=== PATIENT | male | born 1970 | race Caucasian/White ===

== ENCOUNTER → 2016-03-30 | Outpatient (CLI) | payer OTHER ==
[~2016-03-30] MED LIST: ACET30TAB PO; HYDR1TAB97 PO; OMEP20CA3 PO; TRAM50TA2 PO
[2016-03-30 13:49] LABS: BASO # 0.1 K/mm3 (0.0-0.2); BASO % 1.4 % (0.0-1.0); EOS # 0.4 K/mm3 (0.0-0.50); EOS % 4.1 % (0.0-3.0); LARGE UNSTAINED CELL # 0.2 K/mm3 (0.0-0.4); LARGE UNSTAINED CELL % 1.8 % (0.0-4.0); LYMPH # 3.1 K/mm3 (1.5-4.5); LYMPH % 33.8 % (24.0-44.0); MEAN CORPUSCULAR HEMOGLOBIN 31.7 pg (27.0-33.0); MEAN CORPUSCULAR HGB CONC 33.6 g/dl (32.0-36.5); MEAN CORPUSCULAR VOLUME 94.4 fl (80.0-96.0); MONO # 0.6 K/mm3 (0.0-0.8); MONO % 6.7 % (0.0-5.0); NEUTROPHILS # 4.5 K/mm3 (1.8-7.7); NEUTROPHILS % 52.2 % (36.0-66.0); PLATELET COUNT, AUTOMATED 256 k/mm3 (150-450); RED CELL DISTRIBUTION WIDTH 13.2 % (11.5-14.5); WHITE BLOOD COUNT 8.7 K/mm3 (4.0-10.0)
--- NOTE | 2016-03-30 15:57 | REP ---
Clinical: Adenopathy . Comparison: 11/12/2015 . Technique: PA and lateral. Findings: The mediastinum and cardiac silhouette are normal. The lung patricio are clear and without acute consolidation, effusion, or pneumothorax. The skeletal structures are intact and normal. Impression: 1. No acute cardiopulmonary process. Signed by Georges Larson MD 03/30/2016 03:48 P
[2016-03-31 13:56] LABS: CONTROL LINE INT CTR LINE PRESENT; HIV SCRN NEGATIVE (NEGATIVE); HIV SCRN1 NEGATIVE (NEGATIVE)
== END ==
LOC: M LAB 12:54
PROVIDERS: ATTEND Internal Medicine Pulmonary Disease
DX: R59.9 Enlarged lymph nodes, unspecified (principal)

== ENCOUNTER 2016-07-07 00:59 | Day surgery (SDC) | payer OTHER ==
[~2016-07-07] VITALS: Ht 175.3 cm; Wt 64.3 kg
[~2016-07-07 00:59] MED LIST changes: +HYDR-3713 PO; -HYDR1TAB97 PO
[2016-07-07] MEDS ORDERED: NS 1,000 ML IV ONE ×2 (02:30→08:00)
[2016-07-07 02:37] LABS: BASO % 0.4 % (0.0-1.0); EOS # 0.1 K/mm3 (0.0-0.50); LARGE UNSTAINED CELL % 0.3 % (0.0-4.0); LYMPH # 0.7 K/mm3 (1.5-4.5); MEAN CORPUSCULAR HEMOGLOBIN 32.6 pg (27.0-33.0); MEAN CORPUSCULAR HGB CONC 34.8 g/dl (32.0-36.5); MEAN CORPUSCULAR VOLUME 93.5 fl (80.0-96.0); MONO # 0.3 K/mm3 (0.0-0.8); MONO % 2.4 % (0.0-5.0); NEUTROPHILS # 10.1 K/mm3 (1.8-7.7); NEUTROPHILS % 89.9 % (36.0-66.0); PLATELET COUNT, AUTOMATED 276 k/mm3 (150-450); RED CELL DISTRIBUTION WIDTH 12.8 % (11.5-14.5); WHITE BLOOD COUNT 11.2 K/mm3 (4.0-10.0)
[2016-07-07 03:00] LABS: ALBUMIN 3.9 GM/DL (3.2-5.2); ALBUMIN/GLOBULIN RATIO 1.34 (1.00-1.93); ALKALINE PHOSPHATASE 73 U/L (45-117); ALT/SGPT 16 U/L (12-78); ANION GAP 10 MEQ/L (8-16); AST/SGOT 13 U/L (15-37); BILIRUBIN,DIRECT 0.2 MG/DL (0.0-0.2); BILIRUBIN,TOTAL 0.5 MG/DL (0.2-1.0); BLOOD UREA NITROGEN 13 MG/DL (7-18); CALCIUM LEVEL 8.5 MG/DL (8.5-10.1); CARBON DIOXIDE LEVEL 26 MEQ/L (21-32); CHLORIDE LEVEL 106 MEQ/L (98-107); CREATININE FOR GFR 0.97 MG/DL (0.70-1.30); GLOMERULAR FILTRATION RATE > 60.0 (>60); GLUCOSE, FASTING 170 MG/DL (70-105); SODIUM LEVEL 142 MEQ/L (136-145); TOTAL PROTEIN 6.8 GM/DL (6.4-8.2)
[2016-07-07] MEDS ORDERED: ONDANSETRON 4MG/2ML VIAL (J2405) IV ONE ×2 (03:30→07:00)
[2016-07-07] MEDS ORDERED: GASTROGRAFIN SOLUTION 30ML (Q9963) As Ordered ONE (03:32)
[2016-07-07] MEDS: MORPHINE 4 MG/ML 1ML SYRINGE IV PRN ×2 (03:36→04:39)
[2016-07-07] MEDS ORDERED: ISOVUE-370 76% 100ML VIAL (Q9967) As Ordered ONE (05:02)
--- NOTE | 2016-07-07 05:10 | REPUSA ---
CLINICAL HISTORY: RUQ pain. TECHNIQUE: Realtime sonographic images were obtained in multiple projections. COMMENTS: Comparison to the prior exam on 08/28/2015. The visualized liver is of uniform echo texture without evidence of mass or defect. There is no intra or extrahepatic biliary ductal dilatation. The common bile duct measures 4.7 mm. The gallbladder is diffusely thickened with multiple gallstones. Diffuse gallbladder wall thickening measuring 6.8 mm. 2 hepatic hemangiomas are noted measuring 1.8 and 1 cm respectively. The right kidney measures 11.2x5.4x4.4 cm. The visualized portions of the pancreas are unremarkable. IMPRESSION: Cholelithiasis. Interval appearance of diffuse thickening of the wall of the gallbladder suspicious for an inflammato ry pathology. Nondilated biliary tree. Two hepatic hemangiomas. Thank you for your kind referral of this patient.
[2016-07-07] MEDS ORDERED: PIPERACILLIN/TAZOBACTAM SOD 3.375 GM in D5W MINI-BAG PLUS 50 ML IV ONE (06:30)
[2016-07-07] MEDS ORDERED: MORPHINE 4 MG/ML 1ML SYRINGE IV PRN (07:00)
[2016-07-07] MEDS ORDERED: METOCLOPRAMIDE INJ 10MG/2ML VIAL (J2765) IV ONE (07:30)
--- NOTE | 2016-07-07 08:37 | REPUSA ---
CLINICAL HISTORY: Abdominal pain. TECHNIQUE: Multiple axial, sagittal and coronal CT images were obtained through the abdomen and pelvi s after administration of oral and intravenous contrast material. COMMENTS: Comparison to the prior exam of 09/24/2015. The liver is of uniform attenuation without mass or defect. There is no intra or extrahepatic biliary ductal dilatation. The spleen is normal. The gallbladder is within normal limits. The pancreas is of normal contour and attenuation characteristics. There is no evidence of adrenal mass. Both kidneys demonstrate prompt and equal nephrograms. The kidneys are normal in size, shape and conf iguration. There is no evidence of renal or ureteral mass. No renal or ureteral calculi are identifie d. There is no hydroureter or hydronephrosis. No evidence for appendicitis. There is mild apparent thickening of the terminal ileum, cecum and asc ending colon. No evidence for small or large bowel obstruction. There is no evidence of abdominal asc ites or lymphadenopathy. There is no evidence of intrinsic or extrinsic bladder mass. There is no pelvic ascites or lymphadeno magdiel. Images of the lung bases show no evidence of pleural or parenchymal mass. There are no pleural effusi ons. The bony structures are free of lytic or blastic lesions. IMPRESSION: Mild apparent thickening of the terminal ileum, cecum and ascending colon. Underdistention, spasm or infectious/inflammatory pathology. Findings were not present on prior exam. Thank you for your kind referral of this patient.
[2016-07-07] MEDS ORDERED: MORPHINE 2 MG/ML 1ML SYRINGE IV PRN (08:45)
[2016-07-07] MEDS ORDERED: ACETAMINOPHEN TAB 650MG DOSE (2X325MG) PO PRN (08:45)
[2016-07-07] MEDS ORDERED: ONDANSETRON 4MG/2ML VIAL (J2405) IV PRN ×2 (08:45→18:15)
[2016-07-07] MEDS: LR 1,000 ML IV SCH ×2 (10:20→20:44)
[2016-07-07] MEDS ORDERED: BUPIVACAINE HCL 0.25% 30 ML VIAL As Ordered ONE (13:41)
[2016-07-07] MEDS ORDERED: CONRAY-60 60% 50ML VIAL (Q9961) As Ordered ONE (13:41)
[2016-07-07] MEDS ORDERED: PIPERACILLIN/TAZOBACTAM SOD 3.375 GM in D5W MINI-BAG PLUS 50 ML IV SCH ×2 (14:00→22:00)
[2016-07-07] MEDS ORDERED: ZOSYN 3.375 GM VIAL (J2543) As Ordered ONE (14:32)
[2016-07-07] MEDS ORDERED: dexameTHASONE 4 MG/ML 1ML VIAL (J1100) As Ordered ONE (16:11)
[2016-07-07] MEDS ORDERED: LIDOCAINE 2% INJ 100 MG/5 ML SDV (FOR ANES.) As Ordered ONE (16:11)
[2016-07-07] MEDS ORDERED: PROPOFOL 200 MG/20 ML VIAL As Ordered ONE (16:11)
[2016-07-07] MEDS ORDERED: fentaNYL 100 MCG/2 ML INJECTION (J3010) As Ordered ONE (16:11)
[2016-07-07] MEDS ORDERED: MIDAZOLAM INJ 2 MG/2 ML VIAL (J2250) As Ordered ONE (16:11)
[2016-07-07] MEDS ORDERED: ONDANSETRON 4MG/2ML VIAL (J2405) As Ordered ONE (16:11)
[2016-07-07] MEDS ORDERED: ROCURONIUM BROMIDE 50 MG/5 ML VIAL As Ordered ONE (16:11)
[2016-07-07] MEDS ORDERED: HYDROmorphone HCL 2 MG/ML 1ML VIAL (J1170) As Ordered ONE (16:14)
[2016-07-07] MEDS ORDERED: PHENYLephrine HCL 500 MCG/5 ML (100MCG/ML) SYRINGE (J2370) As Ordered ONE (16:24)
--- NOTE | 2016-07-07 16:44 | ECGEPIP ---
Stationary ECG Study [facility] - ED Test Date: 2016-07-07 Pat Name: CHRIS GOYAL Department: Room: - Gender: M Appeals [employer] Associate Justice: : 1970 Requested By: JEAN-PIERRE Funk Order Number: [id number] Reading MD: Jerri Jaime Measurements Intervals [place] Rate: 41 P: 67 TX: 148 QRS: 68 QRSD: 89 T: 65 QT: 457 QTc: 380 Interpretive Statements SINUS BRADYCARDIA NSTTW ABNORMALITY SIMILAR 04/05/15 Electronically Signed On 07-07-2016 16:44:08 EDT by Jerri Jaime
[2016-07-07] MEDS ORDERED: DESFLURANE 240 ML INHALANT As Ordered ONE (16:55)
[2016-07-07] MEDS ORDERED: GLYCOPYRROLATE INJ 0.2 MG/ML 2 ML VIAL As Ordered ONE ×2 (17:10→17:32)
[2016-07-07] MEDS ORDERED: NEOSTIGMINE 1MG/ML 5 ML SYRINGE (J2710) As Ordered ONE (17:10)
[2016-07-07] MEDS ORDERED: SEVOFLURANE INHAL SOLN 250 ML BTL As Ordered ONE (17:11)
[2016-07-07] MEDS ORDERED: KETOROLAC 60 MG/2 ML VIAL (J1885) As Ordered ONE (17:26)
[2016-07-07] MEDS ORDERED: LR 1,000 ML IV SCH (18:15)
[2016-07-07] MEDS ORDERED: fentaNYL 100 MCG/2 ML INJECTION (J3010) IV PRN (18:15)
[2016-07-07] MEDS ORDERED: PERCOCET 5MG/325MG TAB PO PRN (18:15)
[2016-07-07 19:23] VITALS: BP 117/71
[2016-07-07 19:53] VITALS: BP 128/61
[2016-07-07 20:27] VITALS: BP 94/60
[2016-07-07] MEDS ORDERED: METOCLOPRAMIDE INJ 10MG/2ML VIAL (J2765) IV PRN (21:00)
[2016-07-07] MEDS ORDERED: PANTOPRAZOLE 40MG TAB (PROTONIX) PO SCH (21:00)
[2016-07-07 21:27] VITALS: BP 115/59
[2016-07-07 22:27] VITALS: BP 94/62
[2016-07-07] MEDS: KETOROLAC 30 MG/ML VIAL (J1885) IV PRN (23:04)
[2016-07-07 23:27] VITALS: BP 101/57
[2016-07-08 00:27] VITALS: BP 97/60
[2016-07-08 06:00] VITALS: BP 114/65
[2016-07-08] MEDS: KETOROLAC 30 MG/ML VIAL (J1885) IV PRN ×2 (07:41→14:30)
[2016-07-08 10:00] VITALS: BP 112/64
[2016-07-08 14:00] VITALS: BP 123/64
[2016-07-08] MEDS ORDERED: IBUP600T26 PO (16:43)
--- NOTE | 2016-07-09 05:57 | RO ---
DATE OF PROCEDURE: 07/07/2016 PREOPERATIVE DIAGNOSIS: Cholelithiasis with acute cholecystitis. POSTOPERATIVE DIAGNOSIS: Cholelithiasis with acute cholecystitis. PROCEDURE PERFORMED: Laparoscopic cholecystectomy. SURGEON: Dr. Tomasz Cardoza. GIS MAPPING TECHNICIAN: ANESTHESIA: General. INDICATIONS FOR PROCEDURE: The patient is a 46-year-old man who presented to the emergency department with severe upper abdominal pain. His white blood cell count was elevated to 11,000 with a left shift. A gallbladder ultrasound revealed cholelithiasis with some diffuse thickening of the gallbladder wall suspicious for acute cholecystitis. The bile ducts were felt to be of normal size. I was consulted and as the pain had persisted for about a day, he was felt to have acute cholecystitis clinically. He is now for a laparoscopic cholecystectomy. OPERATIVE PROCEDURE: The patient was placed under general endotracheal anesthesia. The patient's abdomen was prepped and draped in a sterile fashion. 0.25% Marcaine was infiltrated at each of the trocar sites prior to insertion. A short supraumbilical midline incision was made and deepened through the fascia and peritoneum. A Hari cannula was inserted and the abdomen was insufflated with carbon dioxide gas. The laparoscope was placed. Initial examination showed a normal-appearing liver. The gallbladder was distended. There appeared to be some edema in the wall of the gallbladder, particularly toward the gallbladder neck, though the gallbladder was not particularly hyperemic. Visualized portions of the small and large bowel and stomach appeared normal. Two 5 mm trocars were placed in the right upper quadrant and a third 5 mm trocar was placed in the left upper quadrant. The patient was tilted to a reverse Trendelenburg position. The gallbladder was grasped and elevated. Dissection proceeded at the gallbladder neck. The peritoneum was opened at the gallbladder neck and dissection proceeded to expose the cystic duct and the cholecystic artery. The cystic duct was identified and encircled first and was doubly clipped with hemoclips and divided. The cholecystic artery was then dissected free and doubly clipped with hemoclips and divided. The gallbladder was then dissected free from the gallbladder bed using cautery dissection. The gallbladder was not perforated. The gallbladder was placed in an Endopouch. The right upper quadrant was irrigated and inspected. There was no evidence of bleeding or bile leak. The patient was returned to a flat position. The abdomen was deflated and the trocars were all removed. The gallbladder was recovered through the Mendez site. The gallbladder wall appeared to be somewhat thickened more diffusely. This was sent for permanent pathology. The fascia at the Mendez site was closed with interrupted simple sutures of #2-0 Vicryl. The skin incisions were all closed with buried #5-0 Vicryl and Steri-Strips. Light dressings were applied. The patient tolerated the procedure well without apparent complication. He was awakened in the operating room, extubated and moved to the recovery room in stable condition. PAT
== END 2016-07-08 17:20 | disposition home or self-care (01) ==
LOC: EDBD 00:59 → M ED 04:00 → M MSPAV 08:45 → M SDC 08:45 → M MSPAV 19:20 → M SDC 07-08 17:20
PROVIDERS: ATTEND Surgery
DX: K80.18 Calculus of gallbladder with other cholecystitis without obstruction (principal); F17.210 Nicotine dependence, cigarettes, uncomplicated

== ENCOUNTER 2016-07-21 14:32 | Emergency (ER) | payer OTHER ==
[~2016-07-21] VITALS: Ht 175.3 cm; Wt 68.0 kg
[~2016-07-21 14:32] MED LIST changes: +IBUP600T26 PO
[2016-07-21] MEDS ORDERED: NS 1,000 ML IV ONE (15:00)
[2016-07-21] MEDS ORDERED: MORPHINE 4 MG/ML 1ML SYRINGE IV ONE (15:00)
[2016-07-21] MEDS ORDERED: PANTOPRAZOLE 40MG INJ (PROTONIX) (C9113) IV ONE (15:00)
[2016-07-21] MEDS ORDERED: ONDANSETRON 4MG/2ML VIAL (J2405) IV ONE (15:00)
[2016-07-21 15:18] LABS: BASO # 0.1 K/mm3 (0.0-0.2); BASO % 0.5 % (0.0-1.0); EOS # 0.2 K/mm3 (0.0-0.50); EOS % 1.9 % (0.0-3.0); LARGE UNSTAINED CELL # 0.1 K/mm3 (0.0-0.4); LARGE UNSTAINED CELL % 0.8 % (0.0-4.0); LYMPH # 1.5 K/mm3 (1.5-4.5); LYMPH % 11.2 % (24.0-44.0); MEAN CORPUSCULAR HEMOGLOBIN 32.6 pg (27.0-33.0); MEAN CORPUSCULAR HGB CONC 34.1 g/dl (32.0-36.5); MEAN CORPUSCULAR VOLUME 95.6 fl (80.0-96.0); MONO # 0.4 K/mm3 (0.0-0.8); MONO % 3.2 % (0.0-5.0); NEUTROPHILS # 10.5 K/mm3 (1.8-7.7); NEUTROPHILS % 82.3 % (36.0-66.0); PLATELET COUNT, AUTOMATED 342 k/mm3 (150-450); RED CELL DISTRIBUTION WIDTH 12.7 % (11.5-14.5); WHITE BLOOD COUNT 12.8 K/mm3 (4.0-10.0)
[2016-07-21 15:33] LABS: ALBUMIN 3.9 GM/DL (3.2-5.2); ALBUMIN/GLOBULIN RATIO 1.39 (1.00-1.93); ALKALINE PHOSPHATASE 78 U/L (45-117); ALT/SGPT 18 U/L (12-78); AMYLASE 92 U/L (25-115); ANION GAP 8 MEQ/L (8-16); AST/SGOT 11 U/L (15-37); BILIRUBIN,DIRECT 0.1 MG/DL (0.0-0.2); BILIRUBIN,TOTAL 0.4 MG/DL (0.2-1.0); BLOOD UREA NITROGEN 14 MG/DL (7-18); CALCIUM LEVEL 8.4 MG/DL (8.5-10.1); CARBON DIOXIDE LEVEL 23 MEQ/L (21-32); CHLORIDE LEVEL 107 MEQ/L (98-107); CREATININE FOR GFR 0.83 MG/DL (0.70-1.30); GLOMERULAR FILTRATION RATE > 60.0 (>60); GLUCOSE, FASTING 118 MG/DL (70-105); POTASSIUM SERUM 4.2 MEQ/L (3.5-5.1); SODIUM LEVEL 138 MEQ/L (136-145); TOTAL PROTEIN 6.7 GM/DL (6.4-8.2)
[2016-07-21] MEDS ORDERED: ISOVUE-370 76% 100ML VIAL (Q9967) As Ordered ONE (15:36)
--- NOTE | 2016-07-21 16:57 | REP ---
CT ABDOMEN AND PELVIS WITH CONTRAST: TECHNIQUE: Axial contrast enhanced images from the lung bases to the pubic symphysis using 100 mL Isovue 370 intravenous contrast material with multiplanar reformations. Visualized lung bases demonstrate no evidence of infiltrate. The liver, spleen, adrenals, pancreas and kidneys are essentially normal in appearance. The patient has had a cholecystectomy. A tiny amount of nonencapsulated fluid is seen in the gallbladder fossa. The common bile duct appears essentially unremarkable without significant dilatation or definite intraluminal stone. There is no abdominal aortic aneurysm. There is no adenopathy. There is no free air. No bowel wall thickening is seen. IMPRESSION: Tiny amount of fluid in the gallbladder fossa, status post cholecystectomy. Otherwise unremarkable exam. Signed by Cooper Stephens MD 07/21/2016 05:27 P
[2016-07-21] MEDS ORDERED: PRIL20CA9 PO (17:30)
[2016-07-21] MEDS ORDERED: ZOFR4TAB3 PO (17:30)
[2016-07-21 17:50] VITALS: BP 112/68
== END 2016-07-21 17:54 | disposition home or self-care (01) ==
LOC: EDBD 14:32 → M ED 15:28
DX: R11.10 Vomiting, unspecified (principal); G43.909 Migraine, unspecified, not intractable, without status migrainosus; F17.200 Nicotine dependence, unspecified, uncomplicated; Z90.49 Acquired absence of other specified parts of digestive tract

== ENCOUNTER 2016-12-10 13:35 | Emergency (ER) | payer OTHER ==
[~2016-12-10] VITALS: Ht 175.3 cm; Wt 63.6 kg
[~2016-12-10 13:35] MED LIST changes: +IBUP-1022 PO; -IBUP600T26 PO; +PRIL20CA9 PO; +ZOFR4TAB3 PO
[2016-12-10] MEDS: NS 1,000 ML IV SCH ×2 (13:39→16:17)
[2016-12-10] MEDS ORDERED: NS 1,000 ML IV ONE (14:00)
[2016-12-10] MEDS ORDERED: METOCLOPRAMIDE INJ 10MG/2ML VIAL (J2765) IV ONE (14:00)
[2016-12-10 14:24] LABS: BASO # 0.1 K/mm3 (0.0-0.2); BASO % 0.9 % (0.0-1.0); EOS # 0.1 K/mm3 (0.0-0.50); EOS % 1.4 % (0.0-3.0); LARGE UNSTAINED CELL # 0.1 K/mm3 (0.0-0.4); LARGE UNSTAINED CELL % 0.9 % (0.0-4.0); LYMPH # 1.5 K/mm3 (1.5-4.5); LYMPH % 14.9 % (24.0-44.0); MEAN CORPUSCULAR HEMOGLOBIN 32.2 pg (27.0-33.0); MEAN CORPUSCULAR HGB CONC 33.2 g/dl (32.0-36.5); MONO # 0.5 K/mm3 (0.0-0.8); MONO % 4.9 % (0.0-5.0); NEUTROPHILS # 7.4 K/mm3 (1.8-7.7); PLATELET COUNT, AUTOMATED 317 k/mm3 (150-450); RED CELL DISTRIBUTION WIDTH 12.8 % (11.5-14.5); WHITE BLOOD COUNT 9.6 K/mm3 (4.0-10.0)
[2016-12-10 14:33] LABS: ALBUMIN 3.9 GM/DL (3.2-5.2); ALBUMIN/GLOBULIN RATIO 1.22 (1.00-1.93); ALKALINE PHOSPHATASE 91 U/L (45-117); ALT/SGPT 17 U/L (12-78); ANION GAP 7 MEQ/L (8-16); AST/SGOT 15 U/L (15-37); BILIRUBIN,DIRECT 0.2 MG/DL (0.0-0.2); BILIRUBIN,TOTAL 0.6 MG/DL (0.2-1.0); BLOOD UREA NITROGEN 9 MG/DL (7-18); CARBON DIOXIDE LEVEL 29 MEQ/L (21-32); CHLORIDE LEVEL 104 MEQ/L (98-107); CREATININE FOR GFR 0.97 MG/DL (0.70-1.30); GLOMERULAR FILTRATION RATE > 60.0 (>60); GLUCOSE, FASTING 108 MG/DL (70-105); POTASSIUM SERUM 4.8 MEQ/L (3.5-5.1); SODIUM LEVEL 140 MEQ/L (136-145); TOTAL PROTEIN 7.1 GM/DL (6.4-8.2)
[2016-12-10] MEDS ORDERED: MORPHINE 4 MG/ML 1ML SYRINGE IV ONE (15:00)
[2016-12-10] MEDS ORDERED: GASTROGRAFIN SOLUTION 30ML (Q9963) As Ordered ONE (15:06)
[2016-12-10] MEDS ORDERED: GASTROGRAFIN SOLUTION 30ML PO ONE (15:15)
[2016-12-10] MEDS ORDERED: PROMETHAZINE INJ 25 MG/ML VIAL (J2550) IV ONE (15:15)
[2016-12-10] MEDS ORDERED: GASTROGRAFIN SOLUTION 30ML (Q9963) PO ONE (15:45)
[2016-12-10] MEDS ORDERED: ISOVUE-370 76% 100ML VIAL (Q9967) As Ordered ONE (16:43)
--- NOTE | 2016-12-10 17:12 | REP ---
Clinical: Abdominal pain. Technique: Axial contrast enhanced images from the lung bases to the pubic symphysis using oral and 100 ml Isovue 370 intravenous contrast material with coronal and sagittal re-formations. Comparison: 07/21/2016. Findings: Lung bases are clear. Visualized heart and pericardium normal. Liver, spleen, pancreas, bilateral adrenal glands and kidneys are normal. The patient is status post cholecystectomy. Evaluation of the enteric system demonstrates mild mural thickening to the sigmoid colon along with small amount of free fluid in the pelvis suggesting infectious/inflammatory colitis and correlation is recommended. The remainder of the small and large bowel including the appendix appear normal and there is no evidence for obstruction. Pelvis demonstrates normal bladder and age appropriate prostate/seminal vesicles. No free air. No significant adenopathy or obvious mass lesion. Abdominal aorta and vasculature appears normal. Musculoskeletal structures demonstrate chronic L5 spondylolysis with grade 1 spondylolisthesis of approximately 6 mm. Impression: 1. Findings suggest infectious/inflammatory sigmoid colitis with small amount of free fluid. No associated free air, drainable collection, or obstruction. 2. Chronic L5 spondylolysis with grade 1 spondylolisthesis. Signed by Georges Larson MD 12/10/2016 05:03 P
[2016-12-10 17:37] LABS: METHADONE URINE NEGATIVE (NEGATIVE)
[2016-12-10] MEDS ORDERED: PHEN1SUP6 PR (18:21)
[2016-12-10 19:11] VITALS: BP 113/60
--- NOTE | 2016-12-11 07:49 | ECGEPIP ---
Stationary ECG Study [facility] - ED Test Date: 2016-12-10 Pat Name: CHRIS GOYAL JR Department: Room: - Gender: M Clinical Research Coordinator: : 1970 Requested By: Jerri Jaime Order Number: [id number] Reading MD: Jerri Jaime Measurements Intervals [place] Rate: 42 P: 58 OR: 230 QRS: 70 QRSD: 87 T: 70 QT: 406 QTc: 341 Interpretive Statements SINUS BRADYCARDIA WITH FIRST DEGREE AV BLOCK WITH OCCASIONAL SUPRAVENTRICULAR PREMATURE COMPLEXES LOW QRS VOLTAGE IN PRECORDIAL LEADS NSTTW ABNORMALITY DELAYED R PROGRESSION Electronically Signed On 12-11-2016 7:49:05 EDT by Jerri Jaime
== END 2016-12-10 19:13 | disposition home or self-care (01) ==
LOC: M ED 13:35
DX: K52.9 Noninfective gastroenteritis and colitis, unspecified (principal); R11.10 Vomiting, unspecified; R94.31 Abnormal electrocardiogram [ECG] [EKG]; F41.9 Anxiety disorder, unspecified; F32.9 Major depressive disorder, single episode, unspecified; G43.909 Migraine, unspecified, not intractable, without status migrainosus; Z87.19 Personal history of other diseases of the digestive system; F17.200 Nicotine dependence, unspecified, uncomplicated; M51.86 Other intervertebral disc disorders, lumbar region; Z79.899 Other long term (current) drug therapy
CPT/HCPCS: 74177; 80048; 80076; 80307; 82550; 82553; 83690; 85025; 93000; 93041; 96361; 96374; 96375; 99284; J2765; Q9963; Q9967

== ENCOUNTER 2016-12-16 12:50 | Emergency (ER) | payer OTHER ==
[~2016-12-16] VITALS: Ht 175.3 cm; Wt 63.6 kg
[~2016-12-16 12:50] MED LIST changes: +PHEN1SUP6 PR
[2016-12-16] MEDS ORDERED: LEVO500T3 (13:02)
[2016-12-16] MEDS ORDERED: ONDANSETRON 4MG/2ML VIAL (J2405) As Ordered ONE (13:49)
[2016-12-16] MEDS ORDERED: NS 500 ML IV ONE (14:00)
[2016-12-16] MEDS ORDERED: ONDANSETRON 4MG/2ML VIAL (J2405) IV ONE (14:00)
[2016-12-16 14:21] LABS: BASO # 0.1 K/mm3 (0.0-0.2); BASO % 0.8 % (0.0-1.0); EOS # 0.1 K/mm3 (0.0-0.50); EOS % 0.8 % (0.0-3.0); LARGE UNSTAINED CELL # 0.1 K/mm3 (0.0-0.4); LARGE UNSTAINED CELL % 0.8 % (0.0-4.0); LYMPH # 1.6 K/mm3 (1.5-4.5); LYMPH % 12.8 % (24.0-44.0); MEAN CORPUSCULAR HEMOGLOBIN 33.9 pg (27.0-33.0); MEAN CORPUSCULAR VOLUME 94.3 fl (80.0-96.0); MONO # 0.6 K/mm3 (0.0-0.8); MONO % 4.6 % (0.0-5.0); NEUTROPHILS # 10.2 K/mm3 (1.8-7.7); NEUTROPHILS % 80.2 % (36.0-66.0); PLATELET COUNT, AUTOMATED 295 k/mm3 (150-450); RED CELL DISTRIBUTION WIDTH 12.4 % (11.5-14.5); WHITE BLOOD COUNT 12.7 K/mm3 (4.0-10.0)
[2016-12-16 14:32] LABS: ALBUMIN 3.7 GM/DL (3.2-5.2); ALBUMIN/GLOBULIN RATIO 1.09 (1.00-1.93); ALKALINE PHOSPHATASE 85 U/L (45-117); ALT/SGPT 25 U/L (12-78); ANION GAP 6 MEQ/L (8-16); AST/SGOT 18 U/L (15-37); BILIRUBIN,DIRECT < 0.1 MG/DL (0.0-0.2); BILIRUBIN,TOTAL 0.3 MG/DL (0.2-1.0); BLOOD UREA NITROGEN 9 MG/DL (7-18); CALCIUM LEVEL 8.8 MG/DL (8.5-10.1); CARBON DIOXIDE LEVEL 29 MEQ/L (21-32); CHLORIDE LEVEL 105 MEQ/L (98-107); CREATININE FOR GFR 0.98 MG/DL (0.70-1.30); GLOMERULAR FILTRATION RATE > 60.0 (>60); GLUCOSE, FASTING 108 MG/DL (70-105); POTASSIUM SERUM 3.8 MEQ/L (3.5-5.1); SODIUM LEVEL 140 MEQ/L (136-145); TOTAL PROTEIN 7.1 GM/DL (6.4-8.2)
[2016-12-16] MEDS ORDERED: diphenhydrAMINE INJ 50MG/ML VIAL (J1200) IV STA (15:37)
[2016-12-16] MEDS ORDERED: HALOPERIDOL 5 MG TAB PO ONE (15:45)
[2016-12-16 17:11] VITALS: BP 138/68
== END 2016-12-16 17:13 | disposition home or self-care (01) ==
LOC: EDBD 12:50 → M ED 12:50
DX: R10.9 Unspecified abdominal pain (principal); G43.909 Migraine, unspecified, not intractable, without status migrainosus; Z87.19 Personal history of other diseases of the digestive system; F17.200 Nicotine dependence, unspecified, uncomplicated; F12.10 Cannabis abuse, uncomplicated; Z79.899 Other long term (current) drug therapy
CPT/HCPCS: 80048; 80076; 83690; 85025; 96361; 96374; 99284; J2405

== ENCOUNTER 2017-08-25 13:45 | Emergency (ER) | payer OTHER ==
[~2017-08-25 13:45] MED LIST changes: -ACET30TAB PO; -HYDR-3713 PO; -IBUP-1022 PO; +IPRATROPIUM 0.5MG/ALBUTEROL 2.5MG INH SOL UD 3ML (DUONEB)(J7620) As Ordered; -OMEP20CA3 PO; -PHEN1SUP6 PR; -PRIL20CA9 PO; -TRAM50TA2 PO; -ZOFR4TAB3 PO; +predniSONE 20 MG TAB As Ordered
[2017-08-25] MEDS ORDERED: LORATADINE 10 MG TAB As Ordered (17:39)
== END 2017-08-25 18:50 | disposition home or self-care (01) ==
LOC: M ED 18:50
DX: J45.901 Unspecified asthma with (acute) exacerbation (principal); J20.8 Acute bronchitis due to other specified organisms; R07.89 Other chest pain; R05 Cough; R06.02 Shortness of breath; Z72.0 Tobacco use
CPT/HCPCS: 94640

== ENCOUNTER 2017-09-04 11:24 | Emergency (ER) | payer OTHER ==
[2017-09-04] MEDS: NS 1,000 ML IV ×2 (11:30→14:30)
[2017-09-04] MEDS: ONDANSETRON 4MG/2ML VIAL (J2405) IV (11:45)
[2017-09-04 11:46] LABS: BASO # 0.1 10^3/uL (0.0-0.2); BASO % 0.5 % (0.0-1.0); EOS # 0.2 10^3/uL (0.0-0.50); EOS % 1.3 % (0.0-3.0); HEMATOCRIT 44.3 % (42.0-52.0); IMMATURE GRANULOCYTE % 1.2 % (0-3.0); LYMPH % 10.7 % (24.0-44.0); MEAN CORPUSCULAR HEMOGLOBIN 31.8 pg (27.0-33.0); MEAN CORPUSCULAR HGB CONC 33.9 g/dl (32.0-36.5); MEAN CORPUSCULAR VOLUME 94.1 fl (80.0-96.0); MONO # 1.1 10^3/uL (0.0-0.8); NEUTROPHILS # 15.3 10^3/uL (1.8-7.7); NEUTROPHILS % 80.3 % (36.0-66.0); PLATELET COUNT, AUTOMATED 448 10^3/uL (150-450); RED BLOOD COUNT 4.71 10^6/uL (4.30-6.10); RED CELL DISTRIBUTION WIDTH 13.3 % (11.5-14.5)
[2017-09-04] MEDS: GI COCKTAIL 50ML BTL(HYOSCYAMINE/MAALOX/LIDOCAINE VISCOUS)(1:3:1) PO (12:02)
[2017-09-04 12:15] LABS: ALBUMIN 3.5 GM/DL (3.2-5.2); ALBUMIN/GLOBULIN RATIO 0.95 (1.00-1.93); ALKALINE PHOSPHATASE 84 U/L (45-117); ALT/SGPT 49 U/L (12-78); AMYLASE 96 U/L (25-115); ANION GAP 6 MEQ/L (8-16); AST/SGOT 17 U/L (7-37); BILIRUBIN,DIRECT < 0.1 MG/DL (0.0-0.2); BILIRUBIN,TOTAL 0.3 MG/DL (0.2-1.0); BLOOD UREA NITROGEN 13 MG/DL (7-18); CALCIUM LEVEL 8.5 MG/DL (8.5-10.1); CARBON DIOXIDE LEVEL 32 MEQ/L (21-32); CHLORIDE LEVEL 103 MEQ/L (98-107); CK-MB VALUE MASS < 1.0 NG/ML (<3.6); CPK CREATINE PHOSPHOKINASE 63 U/L (39-308); GLOMERULAR FILTRATION RATE > 60.0 (>60); GLUCOSE, FASTING 131 MG/DL (70-100); LIPASE 318 U/L (73-393); MB/CK RELATIVE INDEX 1.58 (< OR =4); SODIUM LEVEL 141 MEQ/L (136-145); TOTAL PROTEIN 7.2 GM/DL (6.4-8.2); TROPONIN I < 0.02 NG/ML (< 0.10)
[2017-09-04] MEDS: GASTROGRAFIN SOLUTION 30ML PO ×2 (12:16→12:39)
[2017-09-04] MEDS: METOCLOPRAMIDE INJ 10MG/2ML VIAL (J2765) IV (13:00)
[2017-09-04 16:20] LABS: CK-MB VALUE MASS < 1.0 NG/ML (<3.6); CPK CREATINE PHOSPHOKINASE 71 U/L (39-308); TROPONIN I < 0.02 NG/ML (< 0.10)
== END 2017-09-04 16:46 | disposition home or self-care (01) ==
LOC: M ED 11:24
DX: R10.13 Epigastric pain (principal); R11.2 Nausea with vomiting, unspecified; R00.1 Bradycardia, unspecified; F41.9 Anxiety disorder, unspecified; F20.9 Schizophrenia, unspecified; G43.909 Migraine, unspecified, not intractable, without status migrainosus; F17.200 Nicotine dependence, unspecified, uncomplicated; Z86.19 Personal history of other infectious and parasitic diseases
CPT/HCPCS: Q9963

== ENCOUNTER 2017-09-26 09:21 | Emergency (ER) | payer OTHER ==
[2017-09-26] MEDS: diphenhydrAMINE INJ 50MG/ML VIAL (J1200) IM (03:35)
[2017-09-26] MEDS: HALOPERIDOL 5 MG/ML VIAL (J1630) IM (03:35)
[2017-09-26 04:35] LABS: HEMATOCRIT 41.3 % (42.0-52.0); HEMOGLOBIN 14.3 g/dl (13.5-17.5); MEAN CORPUSCULAR HEMOGLOBIN 31.8 pg (27.0-33.0); MEAN CORPUSCULAR HGB CONC 34.6 g/dl (32.0-36.5); MEAN CORPUSCULAR VOLUME 91.8 fl (80.0-96.0); PLATELET COUNT, AUTOMATED 262 10^3/uL (150-450); RED CELL DISTRIBUTION WIDTH 12.6 % (11.5-14.5)
[2017-09-26 05:01] LABS: CPK CREATINE PHOSPHOKINASE 284 U/L (39-308)
[2017-09-26 05:09] LABS: ALBUMIN 3.8 GM/DL (3.2-5.2); ALBUMIN/GLOBULIN RATIO 1.27 (1.00-1.93); ALKALINE PHOSPHATASE 90 U/L (45-117); ALT/SGPT 29 U/L (12-78); ANION GAP 10 MEQ/L (8-16); AST/SGOT 18 U/L (7-37); BILIRUBIN,DIRECT 0.1 MG/DL (0.0-0.2); BILIRUBIN,TOTAL 0.5 MG/DL (0.2-1.0); BLOOD UREA NITROGEN 17 MG/DL (7-18); CALCIUM LEVEL 8.8 MG/DL (8.5-10.1); CARBON DIOXIDE LEVEL 26 MEQ/L (21-32); CHLORIDE LEVEL 106 MEQ/L (98-107); CREATININE FOR GFR 1.35 MG/DL (0.70-1.30); ETHYL ALCOHOL (ETHANOL) < 0.003 % (0.000-0.010); GLOMERULAR FILTRATION RATE > 60.0 (>60); GLUCOSE, FASTING 212 MG/DL (70-100); POTASSIUM SERUM 3.3 MEQ/L (3.5-5.1); SALICYLATE LEVEL 1.8 MG/DL (5.0-30.0); SODIUM LEVEL 142 MEQ/L (136-145); THYROID STIMULATING HORMONE 0.577 uIU/ML (0.358-3.740); TOTAL PROTEIN 6.8 GM/DL (6.4-8.2)
[2017-09-26 05:16] LABS: ACETAMINOPHEN LEVEL < 2.0 UG/ML (10.0-30.0)
[2017-09-26 05:34] LABS: AMPHETAMINES LEVEL URINE NEGATIVE (NEGATIVE); BARBITURATES URINE NEGATIVE (NEGATIVE); BENZODIAZEPINES URINE NEGATIVE (NEGATIVE); CANNABINOIDS URINE POSITIVE (NEGATIVE); COCAINE METABOLITE URINE POSITIVE (NEGATIVE); METHADONE URINE NEGATIVE (NEGATIVE); OPIATES URINE NEGATIVE (NEGATIVE); PHENCYCLIDINE URINE NEGATIVE (NEGATIVE)
[2017-09-26] MEDS: POTASSIUM CHLORIDE 10 MEQ SR TABLET PO (07:57)
== END 2017-09-26 09:38 | disposition home or self-care (01) ==
LOC: M ED 09:21
DX: F14.121 Cocaine abuse with intoxication with delirium (principal)
CPT/HCPCS: J1200

== ENCOUNTER 2018-02-14 14:22 | Emergency (ER) | payer OTHER ==
[2018-02-14] MEDS: NS 500 ML IV (14:45)
[2018-02-14 14:59] LABS: BASO # 0.1 10^3/uL (0.0-0.2); BASO % 0.9 % (0.0-1.0); EOS # 0.1 10^3/uL (0.0-0.50); EOS % 0.6 % (0.0-3.0); HEMATOCRIT 47.2 % (42.0-52.0); HEMOGLOBIN 16.5 g/dl (13.5-17.5); IMMATURE GRANULOCYTE % 0.4 % (0-3.0); LYMPH # 2.2 10^3/uL (1.5-4.5); LYMPH % 20.7 % (24.0-44.0); MEAN CORPUSCULAR HEMOGLOBIN 31.4 pg (27.0-33.0); MEAN CORPUSCULAR VOLUME 89.7 fl (80.0-96.0); MONO # 0.6 10^3/uL (0.0-0.8); MONO % 5.7 % (0.0-5.0); NEUTROPHILS # 7.7 10^3/uL (1.8-7.7); NEUTROPHILS % 71.7 % (36.0-66.0); PLATELET COUNT, AUTOMATED 333 10^3/uL (150-450); RED BLOOD COUNT 5.26 10^6/uL (4.30-6.10); RED CELL DISTRIBUTION WIDTH 12.8 % (11.5-14.5); WHITE BLOOD COUNT 10.8 10^3/uL (4.0-10.0)
[2018-02-14] MEDS: ONDANSETRON 4MG/2ML VIAL (J2405) IV (15:00)
[2018-02-14] MEDS: NS 1,000 ML IV (15:00)
[2018-02-14] MEDS: MORPHINE 4 MG/ML 1ML VIAL/SYRINGE (J2270) IV (15:01)
[2018-02-14 15:24] LABS: ALBUMIN 4.2 GM/DL (3.2-5.2); ALBUMIN/GLOBULIN RATIO 1.35 (1.00-1.93); ALKALINE PHOSPHATASE 81 U/L (45-117); ALT/SGPT 22 U/L (12-78); ANION GAP 6 MEQ/L (8-16); AST/SGOT 16 U/L (7-37); BILIRUBIN,DIRECT 0.2 MG/DL (0.0-0.2); BILIRUBIN,TOTAL 0.8 MG/DL (0.2-1.0); BLOOD UREA NITROGEN 11 MG/DL (7-18); CALCIUM LEVEL 9.4 MG/DL (8.5-10.1); CARBON DIOXIDE LEVEL 27 MEQ/L (21-32); CHLORIDE LEVEL 103 MEQ/L (98-107); CREATININE FOR GFR 0.86 MG/DL (0.70-1.30); GLOMERULAR FILTRATION RATE > 60.0 (>60); GLUCOSE, FASTING 126 MG/DL (70-100); LIPASE 95 U/L (73-393); POTASSIUM SERUM 4.4 MEQ/L (3.5-5.1); SODIUM LEVEL 136 MEQ/L (136-145); TOTAL PROTEIN 7.3 GM/DL (6.4-8.2)
[2018-02-14] MEDS ORDERED: ISOVUE-370 76% 100ML VIAL (Q9967) As Ordered (15:46)
== END 2018-02-14 17:13 | disposition home or self-care (01) ==
LOC: M ED 14:22
DX: K52.9 Noninfective gastroenteritis and colitis, unspecified (principal); F32.9 Major depressive disorder, single episode, unspecified
CPT/HCPCS: J2270

== ENCOUNTER 2018-04-04 23:12 | Emergency (ER) | payer OTHER ==
[~2018-04-04] VITALS: Ht 175.3 cm; Wt 61.1 kg
[~2018-04-04 23:12] MED LIST changes: +ACET30TAB PO; +CIPR-249 PO; +FLAG500T PO; +HYDR-3713 PO; +IBUP-1022 PO; -IPRATROPIUM 0.5MG/ALBUTEROL 2.5MG INH SOL UD 3ML (DUONEB)(J7620) As Ordered; +LEVO500T3; +OMEP20CA3 PO; +PHEN1SUP6 PR; +PRIL20CA9 PO; +PROAAER10 INH; +TRAM50TA2 PO; +ZOFR4TAB14 PO; -predniSONE 20 MG TAB As Ordered
[2018-04-05] MEDS ORDERED: IPRATROPIUM 0.5MG/ALBUTEROL 2.5MG INH SOL UD 3ML (DUONEB)(J7620) NEB PRN (01:45)
[2018-04-05] MEDS ORDERED: NS 1,000 ML IV ONE (01:45)
[2018-04-05] MEDS ORDERED: GI COCKTAIL 50ML BTL(HYOSCYAMINE/MAALOX/LIDOCAINE VISCOUS)(1:3:1) PO ONE (01:45)
[2018-04-05] MEDS ORDERED: ONDANSETRON 4MG/2ML VIAL (J2405) IV ONE (01:45)
[2018-04-05] MEDS ORDERED: methylPREDNISolone INJ 125 MG/2 ML VIAL (J2930) IV ONE (01:45)
[2018-04-05 02:09] LABS: BASO % 0.3 % (0.0-1.0); HEMATOCRIT 43.9 % (42.0-52.0); HEMOGLOBIN 15.5 g/dl (13.5-17.5); LYMPH # 0.9 10^3/uL (1.5-4.5); LYMPH % 15.6 % (24.0-44.0); MEAN CORPUSCULAR HEMOGLOBIN 31.8 pg (27.0-33.0); MEAN CORPUSCULAR HGB CONC 35.3 g/dl (32.0-36.5); MONO # 1.1 10^3/uL (0.0-0.8); MONO % 17.9 % (0.0-5.0); NEUTROPHILS % 65.9 % (36.0-66.0); PLATELET COUNT, AUTOMATED 237 10^3/uL (150-450); RED BLOOD COUNT 4.88 10^6/uL (4.30-6.10)
--- NOTE | 2018-04-05 02:16 | REP ---
Clinical: Shortness of breath . Comparison: 09/04/2017 . Technique: PA and lateral. Findings: The mediastinum and cardiac silhouette are normal. The lung patricio are clear and without acute consolidation, effusion, or pneumothorax. The skeletal structures are intact and normal. Impression: 1. No acute cardiopulmonary process. Electronically Signed by Georges Larson MD 04/05/2018 02:07 A
[2018-04-05 02:39] LABS: ALBUMIN 3.6 GM/DL (3.2-5.2); ALT/SGPT 42 U/L (12-78); BILIRUBIN,TOTAL 0.4 MG/DL (0.2-1.0); BLOOD UREA NITROGEN 11 MG/DL (7-18); CALCIUM LEVEL 8.4 MG/DL (8.5-10.1); CARBON DIOXIDE LEVEL 29 MEQ/L (21-32); CHLORIDE LEVEL 98 MEQ/L (98-107); CK-MB VALUE MASS < 1.0 NG/ML (<3.6); CPK CREATINE PHOSPHOKINASE 59 U/L (39-308); CREATININE FOR GFR 0.76 MG/DL (0.70-1.30); GLOMERULAR FILTRATION RATE > 60.0 (>60); GLUCOSE, FASTING 98 MG/DL (70-100); LIPASE 216 U/L (73-393); MB/CK RELATIVE INDEX 1.69 (< OR =4); POTASSIUM SERUM 4.2 MEQ/L (3.5-5.1); SODIUM LEVEL 133 MEQ/L (136-145); TOTAL PROTEIN 6.8 GM/DL (6.4-8.2); TROPONIN I < 0.02 NG/ML (< 0.10)
[2018-04-05] MEDS ORDERED: AZIT-12 PO (02:43)
[2018-04-05] MEDS ORDERED: ZOFR4TAB14 PO (02:43)
[2018-04-05] MEDS ORDERED: TESS100C PO (02:43)
[2018-04-05] MEDS ORDERED: PRED20TA PO (02:43)
[2018-04-05] MEDS ORDERED: AZITHROMYCIN 250 MG TAB PO ONE (02:45)
[2018-04-05] MEDS ORDERED: FULLMIS XX (02:49)
[2018-04-05] MEDS ORDERED: IPRA0.00 NEB (02:49)
[2018-04-05 03:16] VITALS: BP 120/61
--- NOTE | 2018-04-05 18:29 | ECGEPIP ---
Stationary ECG Study [facility] - ED Test Date: 2018-04-05 Pat Name: CHRIS GOYAL JR Department: Room: - Gender: M Lav Crewman: : 1970 Requested By: AI Anders PA-C Order Number: [id number] Reading MD: Efrain Poole Measurements Intervals [place] Rate: 107 P: 76 CA: 134 QRS: 79 QRSD: 76 T: 73 QT: 285 QTc: 381 Interpretive Statements SINUS TACHYCARDIA INCOMPLETE RIGHT BUNDLE BRANCH BLOCK LOW QRS VOLTAGE IN PRECORDIAL LEADS SIMILAR TO 03/30/18 Electronically Signed On 04-05-2018 18:29:11 EST by Efrain Poole
== END 2018-04-05 03:17 | disposition home or self-care (01) ==
LOC: M ED 23:12
DX: J06.9 Acute upper respiratory infection, unspecified (principal); R05 Cough; R06.02 Shortness of breath; R11.2 Nausea with vomiting, unspecified; F17.210 Nicotine dependence, cigarettes, uncomplicated; G43.909 Migraine, unspecified, not intractable, without status migrainosus; R19.7 Diarrhea, unspecified
CPT/HCPCS: 71046; 80053; 82550; 82553; 83690; 85025; 87486; 87581; 87633; 87798; 93005; 94640; 96374; 96375; 99284; J2405; J2930

== ENCOUNTER 2018-06-03 10:18 | Observation (INO) | payer OTHER ==
[~2018-06-03] VITALS: Ht 175.3 cm; Wt 60.8 kg
[~2018-06-03 10:18] MED LIST changes: +AZIT-12 PO; +FULLMIS XX; +IPRA0.00 NEB; +PRED20TA PO; +TESS100C PO
[2018-06-03] MEDS ORDERED: methylPREDNISolone INJ 125 MG/2 ML VIAL (J2930) IV ONE (11:00)
[2018-06-03] MEDS: IPRATROPIUM 0.5MG/ALBUTEROL 2.5MG INH SOL UD 3ML (DUONEB)(J7620) NEB PRN ×3 (11:24→14:19)
[2018-06-03 11:28] LABS: ABG HCO3 25.2 MEQ/L (22.0-26.0); ABG O2 SATURATION 95.7 % (95.0-99.0); ABG PARTIAL PRESSURE CO2 38.9 mmHg (35.0-45.0); ABG PARTIAL PRESSURE O2 72.3 mmHg (75.0-100.0); ABG STANDARD HCO3 25.3 MEQ/L (22.0-26.0); ABG TOTAL CO2 26.4 MEQ/L (22.0-29.0); ABG pH (ARTERIAL) 7.429 UNITS (7.350-7.450)
[2018-06-03 11:34] LABS: BASO % 0.5 % (0.0-1.0); HEMATOCRIT 41.8 % (42.0-52.0); HEMOGLOBIN 14.6 g/dl (13.5-17.5); LYMPH # 0.9 10^3/uL (1.5-4.5); LYMPH % 11.9 % (24.0-44.0); MEAN CORPUSCULAR HEMOGLOBIN 32.1 pg (27.0-33.0); MEAN CORPUSCULAR HGB CONC 34.9 g/dl (32.0-36.5); MEAN CORPUSCULAR VOLUME 91.9 fl (80.0-96.0); MONO # 0.9 10^3/uL (0.0-0.8); MONO % 11.3 % (0.0-5.0); NEUTROPHILS # 5.9 10^3/uL (1.8-7.7); PLATELET COUNT, AUTOMATED 235 10^3/uL (150-450); RED BLOOD COUNT 4.55 10^6/uL (4.30-6.10); WHITE BLOOD COUNT 7.8 10^3/uL (4.0-10.0)
[2018-06-03 12:04] LABS: BLOOD UREA NITROGEN 7 MG/DL (7-18); CALCIUM LEVEL 8.3 MG/DL (8.5-10.1); CARBON DIOXIDE LEVEL 27 MEQ/L (21-32); CHLORIDE LEVEL 102 MEQ/L (98-107); CPK CREATINE PHOSPHOKINASE 81 U/L (39-308); GLOMERULAR FILTRATION RATE > 60.0 (>60); GLUCOSE, FASTING 134 MG/DL (70-100); MB/CK RELATIVE INDEX 1.23 (< OR =4); NT-PRO BNP 21 PG/ML (<125); POTASSIUM SERUM 3.1 MEQ/L (3.5-5.1); SODIUM LEVEL 139 MEQ/L (136-145); TROPONIN I < 0.02 NG/ML (< 0.10)
--- NOTE | 2018-06-03 12:47 | REP ---
CHEST, TWO VIEWS: COMPARISON: 04/05/2018. There is no evidence of acute infiltrate. No pleural effusion is seen. The heart is normal in size. The mediastinal silhouette is unremarkable. The visualized osseous structures are intact. IMPRESSION: No acute pulmonary disease. Electronically Signed by Cooper Stephens MD 06/06/2018 11:16 A
[2018-06-03] MEDS ORDERED: ISOVUE-370 76% 100ML VIAL (Q9967) As Ordered ONE (13:00)
[2018-06-03] MEDS ORDERED: POTASSIUM CHLORIDE 10 MEQ SR TABLET PO ONE (13:30)
--- NOTE | 2018-06-03 14:29 | REP ---
CT ANGIOGRAM CHEST: TECHNIQUE: Axial contrast enhanced images from the thoracic inlet to the upper abdomen using 100 mL Isovue 370 intravenous contrast material with multiplanar reformations. There is no CT evidence of pulmonary embolism. There is no thoracic aortic aneurysm or dissection. There is no mediastinal, axillary or hilar adenopathy. There is no pleural or pericardial effusion. The heart is normal in size. There is mild diffuse interstitial fibrosis bilaterally without consolidative infiltrate. There is mild bilateral lower lobe bronchiectasis. Patient has had prior cholecystectomy. Upper abdominal structures are otherwise essentially unremarkable. IMPRESSION: No CT evidence of pulmonary embolism or other acute finding. Electronically Signed by Cooper Stephens MD 06/06/2018 11:39 A
[2018-06-03 15:04] VITALS: O2SAT 88
[2018-06-03] MEDS ORDERED: PROAAER10 INH (15:50)
[2018-06-03] MEDS ORDERED: ACETAMINOPHEN TAB 650MG DOSE (2X325MG) PO PRN (18:00)
[2018-06-03] MEDS ORDERED: ALBUTEROL SULFATE 2.5 MG/0.5 ML INH NEB SOLN NEB PRN (18:00)
[2018-06-03 18:27] VITALS: BP 125/89
--- NOTE | 2018-06-03 18:47 | ECGEPIP ---
Stationary ECG Study [facility] - ED Test Date: 2018-06-03 Pat Name: CHRIS GOYAL JR Department: Room: - Gender: M Statistical Assistant: CHEMA : 1970 Requested By: MARQUISE Singh Order Number: [id number] Reading MD: Efrain Poole Measurements Intervals [place] Rate: 107 P: 78 OR: 153 QRS: 70 QRSD: 76 T: 76 QT: 308 QTc: 412 Interpretive Statements SINUS TACHYCARDIA POSSIBLE LEFT ATRIAL ENLARGEMENT INCOMPLETE RIGHT BUNDLE BRANCH BLOCK SIMILAR TO 04/05/18 Electronically Signed On 06-03-2018 18:47:13 EST by Efrain Poole
--- NOTE | 2018-06-03 19:23 | HPE ---
DATE OF ADMISSION: 06/03/2018 CC: CARRERA HISTORY OF PRESENT ILLNESS: Patient is a 47-year-old male who presents to the hospital after a 4 to 5 day history of increasing difficulty breathing especially on exertion. The patient says he has been having breathing problems for multiple years, however, they have not been that bad. He has been at the hospital numerous times in the emergency room over the last year for some difficulty with breathing. Patient does have an extensive smoking history of both tobacco and marijuana. Patient says that over the last few days he has really noticed him having difficulty breathing. Breathing has been so bad that he has actually had to cut down on the amount of cigarettes he is smoking because they have been affecting his breathing so poorly. Patient says he does not take any medications, does not have routine medical care. Patient said last night when he was over at a friend's house, his friends noticed that he was having difficulty breathing so they gave him an albuterol inhaler that they had. He said it helped a little bit, but he was still having some difficulty breathing. Patient says he is not able to really walk more than one or two blocks without having to stop because his breathing is so bad. PAST MEDICAL HISTORY: Patient denies any past medical history. PAST SURGICAL HISTORY: Patient had a cholecystectomy and a colonoscopy with polyp removal. ALLERGIES: No known drug allergies. MEDICATIONS: He was using a friend's albuterol inhaler. Said he was prescribed different medications, but he has not been taking any. FAMILY HISTORY: Family history of stroke and cancer in his grandmother and mother. SOCIAL HISTORY: Patient has smoked 1 to 2 packs of cigarettes a day since he was 16 years old. He has also been smoking marijuana since he was 10 years old. Patient says he does not drink. Patient does have a history of IV drug use with methamphetamine and he has also been snorting cocaine. Patient says he has not used IV drugs for some time. Patient also says he has not used cocaine for greater than 6 months. Patient says he has not been very sexually active over the last couple of months, however, in the past the patient says he has picked up many prostitutes, although he has been tested for sexually transmitted infection (STI) and said he was negative, except for genital herpes. Patient lives at home with a Chihuahua and three parakeets. REVIEW OF SYSTEMS: GENERAL: Patient denies fevers or chills. HEENT: Patient denies headache, runny nose, sore throat, or change in vision. CARDIOVASCULAR: Patient denies chest pain. RESPIRATORY: Patient endorses shortness of breath and cough. ABDOMEN: Patient denies nausea, vomiting, diarrhea or abdominal pain. : Patient denies any difficulty or pain with urination. SKIN: Patient denies any rashes or lesions. NEUROLOGICAL: Patient denies any numbness or tingling in his extremities. EXTREMITIES: Patient denies any pain or swelling in his extremities. LYMPHATICS: Patient denies any lumps or bumps in neck, axilla or groin. PHYSICAL EXAMINATION: VITALS: Temperature 98.4, pulse 104, respiratory rate 21. Blood pressure 107/68, pulse oximetry 92% on nasal cannula. Oxygen at 4 liters. GENERAL: Patient is a thin appearing older than stated age alert and oriented male who is laying on the stretcher when I walked in with oxygen tubing around his face. Patient did not appear to be any acute distress. HEENT: Normocephalic, atraumatic, anicteric sclera. Moist mucous membranes. NECK: Supple. No lymphadenopathy. No stridor. RESPIRATORY: Clear to auscultation bilaterally. HEART: Tachycardic with a regular rhythm. No murmurs auscultated. ABDOMEN: Soft, nontender. Normoactive bowel sounds in all four quadrants. NEUROLOGICAL: Cranial nerves II through XII are intact. Muscle strength 5 out of 5 in upper and lower extremity myotomes. Patient reports good sensation in all dermatomes in the upper and lower extremities. EXTREMITIES: No peripheral edema. Radials and posterior tibial pulses are equal bilaterally. LABORATORY: CBC: White blood cell count 7.8, hemoglobin 14.6, hematocrit 41.8, platelet count 235. ABG: PH 7.429, pCO2 38.9, pO2 72.3. Bicarbonate 25.2. Chemistry: Sodium 139, potassium 3.1, chloride 102, bicarbonate 27, BUN 7, creatinine 0.8. Glucose 134, calcium 8.3. Total creatine kinase 81. CK-MB 1.0, CK-MB relative index 1.23. Troponin less than 0.21. BTNP 21. IMAGING: A chest x-ray shows no acute pulmonary disease and a CTA showed no CT evidence of pulmonary embolism or other acute findings. ASSESSMENT AND PLAN: Patient is a 47-year-old male who presents with hypoxemic respiratory distress. Patient is breathing better on 4 liters of oxygen via nasal cannula. Patient appears to have underlying emphysematous changes on his CT. With patient smoking history of both tobacco and marijuana, it is likely that the patient does have emphysema. We will admit the patient for observation, keep the patient on oxygen with DuoNebs every 6 hours. We will start the patient on Advair for inhaled cortical steroids. We will also test the patient while walking while on continuous pulse oximetry to see if the patient's qualifies for at home oxygen. A Patient and Family Services (PFS) consult has been placed to work with the patient. My faculty preceptor for this patient encounter was physically present during the encounter and was fully available. All aspects of the patient interview, examination, medical decision making process, and medical care plan development were reviewed and approved by the faculty preceptor. The faculty preceptor is aware and concurs with the plan as stated in the body of this note and will attest to such by his/her co-signature. I have both independently examined this patient as well as reviewed the H&P. I have discussed in detail with the resident the findings and plan of treatment as documented in the resident's note. Ginny STEWART
[2018-06-03] MEDS: IPRATROPIUM 0.5MG/ALBUTEROL 2.5MG INH SOL UD 3ML (DUONEB)(J7620) NEB SCH (20:00)
[2018-06-03] MEDS: NICOTINE 21MG/24HR 1 EA TRANSDERMAL TD SCH (20:21)
[2018-06-03] MEDS: ADVAIR HFA 115/21MCG INHALER INH SCH (21:00)
[2018-06-03 22:00] VITALS: BP 135/73
[2018-06-04] MEDS: IPRATROPIUM 0.5MG/ALBUTEROL 2.5MG INH SOL UD 3ML (DUONEB)(J7620) NEB SCH ×4 (02:00→20:00)
[2018-06-04 06:00] VITALS: BP 112/70
[2018-06-04 07:20] LABS: BASO % 0.2 % (0.0-1.0); HEMOGLOBIN 15.1 g/dl (13.5-17.5); LYMPH # 1.3 10^3/uL (1.5-4.5); LYMPH % 12.8 % (24.0-44.0); MEAN CORPUSCULAR HEMOGLOBIN 31.3 pg (27.0-33.0); MEAN CORPUSCULAR HGB CONC 33.6 g/dl (32.0-36.5); MEAN CORPUSCULAR VOLUME 93.2 fl (80.0-96.0); MONO # 1.3 10^3/uL (0.0-0.8); MONO % 12.8 % (0.0-5.0); NEUTROPHILS # 7.5 10^3/uL (1.8-7.7); NEUTROPHILS % 73.7 % (36.0-66.0); PLATELET COUNT, AUTOMATED 260 10^3/uL (150-450); RED BLOOD COUNT 4.83 10^6/uL (4.30-6.10); WHITE BLOOD COUNT 10.2 10^3/uL (4.0-10.0)
[2018-06-04] MEDS: ADVAIR HFA 115/21MCG INHALER INH SCH ×2 (07:23→21:00)
[2018-06-04 07:48] LABS: BLOOD UREA NITROGEN 14 MG/DL (7-18); CALCIUM LEVEL 8.4 MG/DL (8.5-10.1); CARBON DIOXIDE LEVEL 27 MEQ/L (21-32); CHLORIDE LEVEL 106 MEQ/L (98-107); CREATININE FOR GFR 0.81 MG/DL (0.70-1.30); GLOMERULAR FILTRATION RATE > 60.0 (>60); GLUCOSE, FASTING 108 MG/DL (70-100); POTASSIUM SERUM 3.6 MEQ/L (3.5-5.1); SODIUM LEVEL 140 MEQ/L (136-145)
[2018-06-04] MEDS: NICOTINE 21MG/24HR 1 EA TRANSDERMAL TD SCH (08:51)
[2018-06-04] MEDS: ENOXAPARIN 40 MG/0.4 ML SYRINGE (J1650) SC SCH (08:51)
[2018-06-04 09:29] LABS: CPK CREATINE PHOSPHOKINASE 110 U/L (39-308); MB/CK RELATIVE INDEX 2.09 (< OR =4); TROPONIN I < 0.02 NG/ML (< 0.10)
--- NOTE | 2018-06-04 13:05 | ECHO ---
DATE OF PROCEDURE: 06/04/2018 REFERRING PHYSICIAN: Dr. Phan INDICATION: Dyspnea Height 175 cm, weight 61 kg. DIMENSIONS: IVS: 0.6 LV: 4.7 LVPW: 0.8 LA: 2.7 Aorta: 2.9 IVC: 1.7 Mitral E wave velocity: 77 A wave: 84 E prime septal: 9.8 E prime lateral: 13.4 FINDINGS: The study is of difficult technical quality with limited windows. Left ventricle is normal size and grossly normal systolic function. I estimate ejection fraction EF around 60%. Right ventricle also appears normal size and systolic function. Both atria appear normal. Aortic, mitral and tricuspid valves appear normal. Pulmonic valve was not seen. No pericardial effusion is noted. Inferior vena cava is normal size and appropriately collapses with respiration indicative of normal central venous pressure. Aortic root is normal. Aortic arch was not well seen. Abdominal aorta appears normal. Doppler interrogation reveals no significant aortic, mitral and tricuspid valvular disease. Mitral inflow pattern and tissue Doppler imaging of mitral annulus revealed grade 1 diastolic dysfunction. CONCLUSIONS: 1. Study is of fair technical quality. 2. Normal left ventricular (LV) size with preserved LV systolic function and grade 1 diastolic dysfunction. 3. No significant valvular disease. 4. Normal central venous pressure. 5. Unable to estimate pulmonary artery pressure. COMMENT: Subacute bacterial endocarditis (SBE) prophylaxis is not recommended. Somewhat limited echocardiogram but no obvious findings to explain the cause of dyspnea. MTDD
[2018-06-04] MEDS: TIOTROPIUM INHALER/CAPSULE (SPIRIVA) INH SCH (13:26)
[2018-06-04 14:00] VITALS: BP 120/86
[2018-06-04] MEDS ORDERED: predniSONE 50 MG TAB PO ONE (15:00)
--- NOTE | 2018-06-04 15:12 | IPNPDOC ---
Text Note Date of Service The patient was seen on 06/04/18. NOTE Subjective: Patient is a 47-year-old male presented to the hospital with increased shortness of breath. Patient was found to be hypoxic and requiring oxygen to maintain saturations above 90%. Today patient is doing better. Patient had a respiratory panel was positive the torrez virus. Patient has no difficulties eating or drinking. Patient's is no difficulties or the bathroom. Patient says he otherwise feels better than yesterday. Review of systems General: Patient denies fevers HEENT: Patient denies headaches Cardiovascular: Patient denies chest pain Respiratory: Patient endorses shortness of breath and coughing GI: Patient denies abdominal pain, nausea, vomiting, diarrhea : Patient denies pain or difficulty with urination Neurological: Patient denies numbness or tingling in extremities Extremities: Patient denies swelling or pain in extremities Objective: Vitals: (see below) General: No acute distress, laying comfortably in bed. HEENT: Normocephalic, atraumatic, moist mucous membranes. Neck: No JVD or lymphadenopathy Cardiac: RRR, No murmurs Pulm: Clear to auscultation b/l. No wheezing, rhonchi (exam post DuoNeb treatment) Abd: NT/ND + BS Ext: No edema or cyanosis. Radial, posterior tibial, and dorsalis pedis pulses equal bilaterally. Labs (see below) Images: No imaging has been performed Assessment/Plan 1. COPD. Patient has likely an exacerbation of underlying COPD due to the positive coronavirus. We have started the patient on 50 mg oral prednisone to be given today and tomorrow. Our hope is to improve the breathing so the patient does not require oxygen therapy and we'll to be discharged home on a steroid taper. Patient is also on DuoNeb's and Advair. 2. Nicotine use. Patient has a 21 mg nicotine replacement patch. DVT prophy: Lovenox 40 subcutaneous every 24 hours Dispo: Pending clinical improvement Jana DAWSON, I+O VSJana, I+O Laboratory Tests 06/04/18 07:00 Red Blood Count 4.83, Mean Corpuscular Volume 93.2, Mean Corpuscular Hemoglobin 31.3, Mean Corpuscular Hemoglobin Concent 33.6, Red Cell Distribution Width 13.2, Neutrophils (%) (Auto) 73.7 H, Lymphocytes (%) (Auto) 12.8 L, Monocytes (%) (Auto) 12.8 H, Eosinophils (%) (Auto) 0.0, Basophils (%) (Auto) 0.2, Neutrophils # (Auto) 7.5, Lymphocytes # (Auto) 1.3 L, Monocytes # (Auto) 1.3 H, Eosinophils # (Auto) 0.0, Basophils # (Auto) 0.0, Calcium Level 8.4 L Vital Signs Date Time Temp Pulse Resp B/P (MAP) Pulse Ox O2 Delivery O2 Flow Rate FiO2 06/04/18 14:00 98.9 89 94 120/86 (97) 94 2.0 06/03/18 18:16 Nasal Cannula I&O- Last 24 Hours up to 6 AM 06/04/18 06:00 Intake Total 360 ml Balance 360 ml GME ATTESTATION GME ATTESTATION My faculty preceptor for this patient encounter was physically present during the encounter and was fully available. All aspects of the patient interview, examination, medical decision making process, and medical care plan development were reviewed and approved by the faculty preceptor. The faculty preceptor is aware and concurs with the plan as stated in the body of this note and will attest to such by his/her cosignature. ATTENDING NOTE I have both independently examined this patient as well as reviewed the note I have discussed in detail the findings and plan of treatment as documented in the note. I will continue to follow the patient and offer further guidance to the patients care as necessary during this hospital stay. MARCOS Ann MD, DO Jun 04, 2018 15:12 DOMINICK ZELAYA MD Jun 05, 2018 07:06
[2018-06-04 20:00] VITALS: BP 130/76
[2018-06-05] MEDS: IPRATROPIUM 0.5MG/ALBUTEROL 2.5MG INH SOL UD 3ML (DUONEB)(J7620) NEB SCH ×2 (02:00→08:00)
[2018-06-05 05:00] VITALS: BP 94/53
[2018-06-05 06:09] VITALS: BP 119/70
[2018-06-05 06:43] LABS: BASO % 0.1 % (0.0-1.0); HEMATOCRIT 42.6 % (42.0-52.0); HEMOGLOBIN 14.3 g/dl (13.5-17.5); LYMPH # 1.2 10^3/uL (1.5-4.5); LYMPH % 16.7 % (24.0-44.0); MEAN CORPUSCULAR HEMOGLOBIN 31.5 pg (27.0-33.0); MEAN CORPUSCULAR HGB CONC 33.6 g/dl (32.0-36.5); MEAN CORPUSCULAR VOLUME 93.8 fl (80.0-96.0); MONO # 0.6 10^3/uL (0.0-0.8); MONO % 8.2 % (0.0-5.0); NEUTROPHILS # 5.5 10^3/uL (1.8-7.7); NEUTROPHILS % 74.6 % (36.0-66.0); PLATELET COUNT, AUTOMATED 266 10^3/uL (150-450); RED BLOOD COUNT 4.54 10^6/uL (4.30-6.10); WHITE BLOOD COUNT 7.4 10^3/uL (4.0-10.0)
[2018-06-05 07:05] LABS: BLOOD UREA NITROGEN 16 MG/DL (7-18); CARBON DIOXIDE LEVEL 26 MEQ/L (21-32); CHLORIDE LEVEL 104 MEQ/L (98-107); CREATININE FOR GFR 0.84 MG/DL (0.70-1.30); GLOMERULAR FILTRATION RATE > 60.0 (>60); GLUCOSE, FASTING 171 MG/DL (70-100); POTASSIUM SERUM 3.6 MEQ/L (3.5-5.1); SODIUM LEVEL 137 MEQ/L (136-145)
[2018-06-05] MEDS: TIOTROPIUM INHALER/CAPSULE (SPIRIVA) INH SCH (08:26)
[2018-06-05] MEDS: ADVAIR HFA 115/21MCG INHALER INH SCH (08:26)
[2018-06-05] MEDS: NICOTINE 21MG/24HR 1 EA TRANSDERMAL TD SCH (08:51)
[2018-06-05] MEDS: ENOXAPARIN 40 MG/0.4 ML SYRINGE (J1650) SC SCH (08:52)
[2018-06-05] MEDS ORDERED: predniSONE 50 MG TAB PO ONE (09:00)
[2018-06-05] MEDS ORDERED: NICO21PAT TD (09:59)
[2018-06-05] MEDS ORDERED: ADVA115A INH (09:59)
[2018-06-05] MEDS ORDERED: ALB2.5NEB NEB (09:59)
[2018-06-05] MEDS ORDERED: PRED10TA2 PO (09:59)
[2018-06-05] MEDS ORDERED: TIOT18INH INH (09:59)
--- NOTE | 2018-06-05 20:15 | DSES ---
DATE OF ADMISSION: 06/03/2018 DATE OF DISCHARGE: 06/05/2018 PRIMARY CARE PROVIDER: None. Attempts are made to give the patient a primary care provider. FINAL DIAGNOSIS: Acute chronic obstructive pulmonary disease (COPD) exacerbation secondary to coronavirus, smoking, tobacco abuse, poor compliance. HISTORY OF PRESENT ILLNESS: This is a 47-year-old male patient who has not seen a doctor for many years, presented with 3-4 days of increasing shortness of breath, especially during exertion, history of smoking. Patient had a history of dyspnea on exertion for many years, but it has not been that bad, but has been to the emergency room multiple times over the past year with shortness of breath. Patient has an extensive smoking history with both tobacco and marijuana and over the past few days has been noticing having difficulty breathing, coughing productive of clear phlegm. Patient does not take any medication. Denies any chest pain, pressure, discomfort. HOSPITAL COURSE: Patient admitted to the hospital. Status post CT angiogram of the chest, which was negative for pulmonary embolism (PE). Given nebulizer treatment. X-rays appreciated. Echocardiogram has been done, showing no evidence of congestive heart failure (CHF). Respiratory panel shows coronavirus. Patient started on prednisone, Ativan, Spiriva, nebulizer treatment. Nicotine patch was given for smoking. Patient's condition gradually improved. Patient was weaned off of oxygen. Serial cardiac enzymes were negative. Currently, patient is comfortable, off of oxygen, ready to be discharged for further care as outpatient. Smoking cessation counseling has been provided to the patient. Attempt was made, message left with corporate responsibility officer, to set up a primary care appointment for the patient. VITAL SIGNS: Temperature 98.6, pulse 80, respirations 24, blood pressure 119/70, pulse oximetry 91% on room air. LABORATORY DATA: WBC 7.5, hemoglobin and hematocrit (H and H) 14.3 and 42.6, platelets 266. Chemistry: Sodium 137, potassium 3.6, chloride 104, bicarbonate 26, BUN 16, creatinine 0.84. PHYSICAL EXAMINATION: GENERAL: Patient alert, comfortable, in no acute distress. HEENT: Normocephalic, atraumatic. PULMONARY: Bilateral clear. CARDIAC: Regular. S1, S2. ABDOMEN: Soft, nontender. Positive bowel sounds. EXTREMITIES: No clubbing, cyanosis or edema. DISCHARGE MEDICATIONS: - albuterol nebulizer every 4 hours as needed - nicotine patch 21 mg transdermal daily - prednisone 10 mg steroid taper; take 40 mg by mouth daily for two days, then 30 mg by mouth daily for two days, then 20 mg by mouth daily for two days, then 10 mg by mouth daily for two days, then stop - Advair inhaler 115/21 mcg inhalation twice a day - Spiriva inhalation daily DISCHARGE INSTRUCTIONS: 1. Please see primary care provider in seven days. 2. Smoking cessation. 3. Avoid drugs. 4. Return to the hospital if symptoms worsen. 5. Consider referral for wound nurse for further workup for chronic obstructive pulmonary disease (COPD)/emphysema.
== END 2018-06-05 10:53 | disposition home or self-care (01) ==
LOC: M ED 10:18 → EDBD 10:18 → M ED INP 16:07 → M MS4PR 18:27
PROVIDERS: ADMIT Internal Medicine; ATTEND Hospitalist
DX: J44.1 Chronic obstructive pulmonary disease with (acute) exacerbation (principal); B34.2 Coronavirus infection, unspecified; F17.210 Nicotine dependence, cigarettes, uncomplicated; Z91.19 Patient's noncompliance with other medical treatment and regimen; F15.21 Other stimulant dependence, in remission; F12.10 Cannabis abuse, uncomplicated; Z86.59 Personal history of other mental and behavioral disorders
CPT/HCPCS: 36415; 36600; 71046; 71275; 80048; 82550; 82553; 82803; 83880; 85025; 87040; 87486; 87581; 87633; 87798; 93005; 93041; 93306; 94640; 96372; 96374; 99285; J1650; J2930; Q9967

== ENCOUNTER → 2018-08-10 | Outpatient (CLI) | payer OTHER ==
[~2018-08-10] MED LIST changes: +ACET-716 PO; -ACET30TAB PO; +ADVA115A INH; +ALB2.5NEB NEB; +NICO21PAT TD; +PRED10TA2 PO; +TIOT18INH INH
[2018-08-12 09:54] LABS: HIV 1&2 SCREEN CENTAUR NEGATIVE (NEGATIVE)
== END ==
LOC: M LAB 16:09
PROVIDERS: ATTEND Family Medicine
DX: Z11.59 Encounter for screening for other viral diseases (principal); Z11.4 Encounter for screening for human immunodeficiency virus [HIV]

== ENCOUNTER 2018-09-12 20:50 | Emergency (ER) | payer OTHER ==
[~2018-09-12] VITALS: Ht 175.3 cm; Wt 72.7 kg
[2018-09-12] MEDS ORDERED: MORPHINE 4 MG/ML 1ML VIAL/SYRINGE (J2270) IV PRN (21:30)
[2018-09-12] MEDS ORDERED: ONDANSETRON 4MG/2ML VIAL (J2405) IV ONE (21:30)
[2018-09-12 21:37] LABS: BASO # 0.1 10^3/uL (0.0-0.2); BASO % 0.8 % (0.0-1.0); EOS # 0.1 10^3/uL (0.0-0.50); EOS % 0.7 % (0.0-3.0); HEMATOCRIT 46.9 % (42.0-52.0); LYMPH # 1.5 10^3/uL (1.5-4.5); LYMPH % 13.8 % (24.0-44.0); MEAN CORPUSCULAR HEMOGLOBIN 31.7 pg (27.0-33.0); MEAN CORPUSCULAR HGB CONC 34.1 g/dl (32.0-36.5); MEAN CORPUSCULAR VOLUME 92.9 fl (80.0-96.0); MONO # 0.5 10^3/uL (0.0-0.8); MONO % 4.6 % (0.0-5.0); NEUTROPHILS # 8.5 10^3/uL (1.8-7.7); NEUTROPHILS % 79.7 % (36.0-66.0); PLATELET COUNT, AUTOMATED 272 10^3/uL (150-450); RED BLOOD COUNT 5.05 10^6/uL (4.30-6.10); WHITE BLOOD COUNT 10.6 10^3/uL (4.0-10.0)
[2018-09-12] MEDS ORDERED: ISOVUE-370 76% 100ML VIAL (Q9967) As Ordered ONE (22:07)
[2018-09-12 22:20] LABS: ALBUMIN 3.8 GM/DL (3.2-5.2); BILIRUBIN,DIRECT 0.1 MG/DL (0.0-0.2); BILIRUBIN,TOTAL 0.4 MG/DL (0.2-1.0); TOTAL PROTEIN 6.9 GM/DL (6.4-8.2)
[2018-09-12] MEDS ORDERED: METOCLOPRAMIDE INJ 10MG/2ML VIAL (J2765) IV ONE (22:30)
--- NOTE | 2018-09-12 23:47 | REPVR ---
EXAM: CT Abdomen and Pelvis With Contrast EXAM DATE/TIME: 09/12/2018 10:21 PM CLINICAL HISTORY: 48 years old, male; Abdominal pain; Generalized; Additional info: Epigastric abd pain TECHNIQUE: Imaging protocol: Axial computed tomography images of the abdomen and pelvis with intravenous contrast. Coronal and sagittal reformatted images were created and reviewed. Radiation optimization: All CT scans at this facility use at least one of these dose optimization techniques: automated exposure control; mA and/or kV adjustment per patient size (includes targeted exams where dose is matched to clinical indication); or iterative reconstruction. Contrast material: ISOVUE 370; Contrast volume: 100 ml; Contrast route: IV; COMPARISON: CT ABD/PEL W/IV CONTRAST ONLY 02/14/2018 3:45 PM FINDINGS: ABDOMEN: Liver: Enlarged liver with mild fatty infiltration. Gallbladder and bile ducts: Status post cholecystectomy. Pancreas: Normal. No ductal dilation. Spleen: Normal. No splenomegaly. Adrenals: Normal. No mass. Kidneys and ureters: Normal. No hydronephrosis. Stomach and bowel: Nondistention versus mild thickening of the colon. No significant surrounding inflammatory changes. No bowel dilatation or obstruction. Appendix: Normal appendix. PELVIS: Bladder: Unremarkable as visualized. Reproductive: Unremarkable as visualized. ABDOMEN and PELVIS: Intraperitoneal space: Normal. No free air. No significant fluid collection. 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 Soft tissues: Unremarkable. Vasculature: Normal. No abdominal aortic aneurysm. Lymph nodes: Multiple subcentimeter mesenteric who lymph nodes, these are not pathologically enlarged by CT criteria. IMPRESSION: Enlarged fatty liver. Nondistention versus mild thickening of the colon. No significant surrounding inflammatory changes. No bowel dilatation or obstruction. Electronically signed by: Eileen Maddox On 09/12/2018 23:47:18 PM
[2018-09-13 00:23] VITALS: BP 96/62
[2018-09-13] MEDS ORDERED: ONDA4TAB6 PO (00:37)
== END 2018-09-13 00:45 | disposition home or self-care (01) ==
LOC: M ED 20:50
DX: A08.4 Viral intestinal infection, unspecified (principal); J44.9 Chronic obstructive pulmonary disease, unspecified; F17.210 Nicotine dependence, cigarettes, uncomplicated
CPT/HCPCS: 74177; 80047; 80076; 83690; 85025; 93041; 96374; 96375; 96376; 99284; J2270; J2405; J2765; Q9967

== ENCOUNTER 2018-11-05 16:33 | Emergency (ER) | payer OTHER ==
[~2018-11-05] VITALS: Ht 175.3 cm; Wt 63.6 kg
[~2018-11-05 16:33] MED LIST changes: -OMEP20CA3 PO; +OMEP20CA4 PO; +ONDA4TAB6 PO
[2018-11-05] MEDS ORDERED: NS 1,000 ML IV ONE (16:45)
[2018-11-05] MEDS ORDERED: HALOPERIDOL 5 MG/ML VIAL (J1630) IV ONE (16:45)
[2018-11-05 16:48] VITALS: BP 130/67
[2018-11-05 17:19] LABS: BASO # 0.1 10^3/uL (0.0-0.2); BASO % 0.5 % (0.0-1.0); EOS % 0.1 % (0.0-3.0); HEMATOCRIT 44.9 % (42.0-52.0); HEMOGLOBIN 15.2 g/dl (13.5-17.5); LYMPH # 1.1 10^3/uL (1.5-4.5); MEAN CORPUSCULAR HEMOGLOBIN 31.6 pg (27.0-33.0); MEAN CORPUSCULAR HGB CONC 33.9 g/dl (32.0-36.5); MEAN CORPUSCULAR VOLUME 93.3 fl (80.0-96.0); MONO # 0.4 10^3/uL (0.0-0.8); MONO % 3.3 % (0.0-5.0); NEUTROPHILS # 9.7 10^3/uL (1.8-7.7); NEUTROPHILS % 85.7 % (36.0-66.0); PLATELET COUNT, AUTOMATED 278 10^3/uL (150-450); RED BLOOD COUNT 4.81 10^6/uL (4.30-6.10); WHITE BLOOD COUNT 11.4 10^3/uL (4.0-10.0)
[2018-11-05 17:47] LABS: ALBUMIN 3.6 GM/DL (3.2-5.2); BILIRUBIN,DIRECT 0.2 MG/DL (0.0-0.2); BILIRUBIN,TOTAL 0.4 MG/DL (0.2-1.0); TOTAL PROTEIN 6.4 GM/DL (6.4-8.2)
--- NOTE | 2018-11-05 18:17 | ECGEPIP ---
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
== END 2018-11-05 17:48 | disposition left against medical advice (07) ==
LOC: M ED 16:33 → EDBD 16:33 → M ED 17:48
DX: R10.9 Unspecified abdominal pain (principal); R11.2 Nausea with vomiting, unspecified; F33.9 Major depressive disorder, recurrent, unspecified; Z87.891 Personal history of nicotine dependence
CPT/HCPCS: 80047; 80076; 83690; 85025; 93005; 96374; 99284; J1630

== ENCOUNTER 2020-08-21 03:30 | Emergency (ER) | payer OTHER ==
[~2020-08-21] VITALS: Ht 175.3 cm; Wt 60.5 kg
[~2020-08-21 03:30] MED LIST changes: +OMEP1CAP73 PO; -OMEP20CA4 PO; +PROA1AER2 INH
[2020-08-21 03:32] VITALS: BP 133/83
--- NOTE | 2020-08-21 05:28 | REPVR ---
PROCEDURE INFORMATION: Exam: XR Chest Exam date and time: 08/21/2020 4:09 AM Age: 50 years old Clinical indication: Pain; Other: Un specified; Additional info: Chest pain TECHNIQUE: Imaging protocol: XR of the chest. Views: 2 views. COMPARISON: CR PORTABLE CHEST X-RAY 07/22/2020 5:14 AM FINDINGS: Lungs: There is hyperinflation related to COPD. There is no pulmonary consolidation. Pleural spaces: No pleural effusion. No pneumothorax. Heart/Mediastinum: No cardiomegaly. Bones/joints: There are some degenerative changes of the spine. IMPRESSION: COPD. Electronically signed by: Tanner Lofton On 08/21/2020 05:28:00 AM
--- NOTE | 2020-08-21 05:52 | ECGEPIP ---
[facility] - ED Test Date: 2020-08-21 Pat Name: CHRIS GOYAL Department: Room: - Gender: Male Council Member: ROLAND : 1970 Requested By: MARQUISE Singh Order Number: [id number] Reading MD: Efrain Poole Measurements Intervals [place] Rate: 94 P: 78 CO: 142 QRS: 70 QRSD: 70 T: 72 QT: 314 QTc: 392 Interpretive Statements Normal sinus rhythm with sinus arrhythmia Low voltage QRS INCOMPLETE RIGHT BUNDLE BRANCH BLOCK POOR R WAVE PROGRESSION SIMILAR TO 07/22/20 Electronically Signed on 08-21-2020 5:51:51 EDT by Efrain Poole
== END 2020-08-21 04:45 | disposition left against medical advice (07) ==
LOC: M ED 03:30
DX: R07.9 Chest pain, unspecified (principal); Z53.21 Procedure and treatment not carried out due to patient leaving prior to being seen by health care provider; J44.9 Chronic obstructive pulmonary disease, unspecified

== ENCOUNTER → 2021-02-01 | Outpatient (CLI) | payer OTHER | LOC: M LABSMTC 11:16 | PROVIDERS: ATTEND Pediatrics | DX: Z20.822 Contact with and (suspected) exposure to COVID-19 (principal) | CPT/HCPCS: C9803; U0003 ==

== ENCOUNTER 2021-10-04 10:49 | Inpatient (IN) | payer OTHER ==
[~2021-10-04] VITALS: Ht 175.3 cm; Wt 57.4 kg
[~2021-10-04 10:49] MED LIST changes: -LEVO500T3; +LEVO500T4
[2021-10-04 11:30] LABS: VENOUS BASE EXCESS 3.4 (-2.0-2.0); VENOUS HCO3 28.2 MEQ/L (23.0-27.0); VENOUS O2 SATURATION 96.5 % (60.0-80.0); VENOUS PARTIAL PRESSURE CO2 42.9 mmHg (38.0-50.0); VENOUS PARTIAL PRESSURE O2 76.4 mmHg (30.0-50.0); VENOUS PH 7.435 UNITS (7.330-7.430); VENOUS STANDARD HCO3 27.5 MEQ/L; VENOUS TOTAL CO2 29.5 MEQ/L (24.0-28.0)
[2021-10-04 11:36] LABS: BASO # 0.1 10^3/uL (0.0-0.2); BASO % 0.4 % (0.0-1.0); HEMATOCRIT 43.9 % (42.0-52.0); HEMOGLOBIN 14.6 g/dl (13.5-17.5); LYMPH # 1.1 10^3/uL (1.5-5.0); LYMPH % 4.1 % (24.0-44.0); MEAN CORPUSCULAR HEMOGLOBIN 31.1 pg (27.0-33.0); MEAN CORPUSCULAR HGB CONC 33.3 g/dl (32.0-36.5); MEAN CORPUSCULAR VOLUME 93.4 fl (80.0-96.0); MONO % 6.1 % (2.0-8.0); NEUTROPHILS # 22.5 10^3/uL (1.5-8.5); NEUTROPHILS % 88.6 % (36.0-66.0); PLATELET COUNT, AUTOMATED 315 10^3/uL (150-450); WHITE BLOOD COUNT 25.4 10^3/uL (4.0-10.0)
[2021-10-04 11:56] LABS: MONO # 1.6 10^3/uL (0.0-0.8)
[2021-10-04 12:10] LABS: ALBUMIN 3.2 GM/DL (3.2-5.2); BILIRUBIN,DIRECT 0.2 MG/DL (0.0-0.2); BILIRUBIN,TOTAL 0.8 MG/DL (0.2-1.0); TOTAL PROTEIN 6.7 GM/DL (6.4-8.2)
[2021-10-04 12:10] LABS: CK-MB VALUE MASS < 1.0 NG/ML (<3.6); CPK CREATINE PHOSPHOKINASE 45 U/L (39-308); MB/CK RELATIVE INDEX 2.22 (< OR =4)
[2021-10-04] MEDS ORDERED: ALBUTEROL SULFATE 2.5 MG/0.5 ML INH NEB SOLN INH ONE (12:15)
[2021-10-04] MEDS ORDERED: IPRATROPIUM 0.5MG/ALBUTEROL 2.5MG INH SOL UD 3ML (DUONEB) NEB ONE ×2 (12:15→13:25)
[2021-10-04] MEDS ORDERED: ISOVUE-370 76% 100ML VIAL As Ordered ONE (12:23)
[2021-10-04] MEDS ORDERED: cefTRIAXone SOD 2 GM in D5W MINI-BAG PLUS 50 ML IV ONE (14:10)
[2021-10-04] MEDS ORDERED: AZITHROMYCIN INJ 500 MG, VIAL MATE ADAPTER 1 EACH in NS 250 ML IV ONE (14:10)
[2021-10-04] MEDS ORDERED: HOME MED LIST COMPLETE! XX SCH (15:45)
[2021-10-04 18:00] VITALS: BP 111/78
[2021-10-04] MEDS: ALBUTEROL SULFATE 2.5 MG/0.5 ML INH NEB SOLN NEB SCH (19:36)
[2021-10-04 22:00] VITALS: BP 117/78
[2021-10-05] MEDS: ALBUTEROL SULFATE 2.5 MG/0.5 ML INH NEB SOLN NEB SCH ×4 (01:40→19:17)
[2021-10-05 06:00] VITALS: BP 115/78
[2021-10-05 06:41] LABS: BASO # 0.1 10^3/uL (0.0-0.2); BASO % 0.5 % (0.0-1.0); EOS # 0.1 10^3/uL (0.0-0.5); EOS % 0.3 % (0.0-3.0); HEMATOCRIT 41.3 % (42.0-52.0); HEMOGLOBIN 13.7 g/dl (13.5-17.5); LYMPH # 1.6 10^3/uL (1.5-5.0); LYMPH % 9.2 % (24.0-44.0); MEAN CORPUSCULAR HEMOGLOBIN 31.1 pg (27.0-33.0); MEAN CORPUSCULAR HGB CONC 33.2 g/dl (32.0-36.5); MEAN CORPUSCULAR VOLUME 93.9 fl (80.0-96.0); MONO # 1.3 10^3/uL (0.0-0.8); MONO % 7.5 % (2.0-8.0); NEUTROPHILS # 14.6 10^3/uL (1.5-8.5); NEUTROPHILS % 81.8 % (36.0-66.0); PLATELET COUNT, AUTOMATED 292 10^3/uL (150-450); WHITE BLOOD COUNT 17.8 10^3/uL (4.0-10.0)
[2021-10-05 07:00] LABS: BLOOD UREA NITROGEN 11 MG/DL (7-18); CALCIUM LEVEL 8.7 MG/DL (8.5-10.1); CARBON DIOXIDE LEVEL 34 MEQ/L (21-32); CHLORIDE LEVEL 100 MEQ/L (98-107); CREATININE FOR GFR 0.61 MG/DL (0.70-1.30); GLOMERULAR FILTRATION RATE > 60.0 (>60); GLUCOSE, FASTING 96 MG/DL (70-100); POTASSIUM SERUM 3.9 MEQ/L (3.5-5.1); SODIUM LEVEL 136 MEQ/L (136-145)
[2021-10-05] MEDS: ENOXAPARIN 40MG/0.4ML SYRINGE (J1650 PER 10MG) SC SCH (09:17)
[2021-10-05] MEDS ORDERED: IBUPROFEN 800 MG TAB PO PRN (09:30)
[2021-10-05 13:44] VITALS: O2SAT 89
[2021-10-05 14:00] VITALS: BP 108/69
[2021-10-05] MEDS ORDERED: cefTRIAXone SOD 1 GM in D5W MINI-BAG PLUS 50 ML IV SCH (14:00)
[2021-10-05] MEDS ORDERED: AZITHROMYCIN INJ 500 MG, VIAL MATE ADAPTER 1 EACH in NS 250 ML IV SCH (15:00)
[2021-10-05 22:00] VITALS: BP 117/75
[2021-10-06 01:03] VITALS: O2SAT 96
[2021-10-06] MEDS: ALBUTEROL SULFATE 2.5 MG/0.5 ML INH NEB SOLN NEB SCH ×2 (02:58→07:17)
[2021-10-06 06:00] VITALS: BP 110/73
[2021-10-06 06:00] LABS: BASO # 0.1 10^3/uL (0.0-0.2); BASO % 0.9 % (0.0-1.0); EOS # 0.2 10^3/uL (0.0-0.5); EOS % 1.7 % (0.0-3.0); HEMATOCRIT 42.9 % (42.0-52.0); HEMOGLOBIN 13.6 g/dl (13.5-17.5); LYMPH # 1.5 10^3/uL (1.5-5.0); LYMPH % 12.9 % (24.0-44.0); MEAN CORPUSCULAR HEMOGLOBIN 30.2 pg (27.0-33.0); MEAN CORPUSCULAR HGB CONC 31.7 g/dl (32.0-36.5); MEAN CORPUSCULAR VOLUME 95.1 fl (80.0-96.0); MONO # 1.2 10^3/uL (0.0-0.8); MONO % 10.2 % (2.0-8.0); NEUTROPHILS # 8.4 10^3/uL (1.5-8.5); NEUTROPHILS % 73.6 % (36.0-66.0); PLATELET COUNT, AUTOMATED 310 10^3/uL (150-450); RED BLOOD COUNT 4.51 10^6/uL (4.30-6.10); WHITE BLOOD COUNT 11.5 10^3/uL (4.0-10.0)
[2021-10-06 06:22] LABS: BLOOD UREA NITROGEN 12 MG/DL (7-18); CALCIUM LEVEL 8.6 MG/DL (8.5-10.1); CARBON DIOXIDE LEVEL 34 MEQ/L (21-32); CHLORIDE LEVEL 103 MEQ/L (98-107); CREATININE FOR GFR 0.66 MG/DL (0.70-1.30); GLOMERULAR FILTRATION RATE > 60.0 (>60); GLUCOSE, FASTING 98 MG/DL (70-100); POTASSIUM SERUM 4.8 MEQ/L (3.5-5.1); SODIUM LEVEL 137 MEQ/L (136-145)
[2021-10-06] MEDS: ENOXAPARIN 40MG/0.4ML SYRINGE (J1650 PER 10MG) SC SCH (09:06)
[2021-10-06] MEDS ORDERED: AZIT500T5 PO (09:41)
[2021-10-06] MEDS ORDERED: CEFD300C41 PO (09:41)
[2021-10-06] MEDS ORDERED: VENTAER INH (09:41)
[2021-10-06] MEDS ORDERED: IPRA0.00 NEB (09:41)
[2021-10-06 10:23] VITALS: O2SAT 97
[2021-10-06] MEDS ORDERED: ALBU2.5V10 INH (11:18)
[2021-10-06] MEDS ORDERED: IPRA2IN NEB (11:18)
== END 2021-10-06 11:43 | disposition home or self-care (01) | DRG 140 ==
LOC: EDSEX 10:49 → EDBD 10:49 → M ED 10:49 → M ED INP 15:07 → M MSPAV 17:49
PROVIDERS: ADMIT Internal Medicine Nephrology; ATTEND Internal Medicine Nephrology
DX: J44.0 Chronic obstructive pulmonary disease with (acute) lower respiratory infection (principal); J18.9 Pneumonia, unspecified organism; J84.10 Pulmonary fibrosis, unspecified; F20.9 Schizophrenia, unspecified; F17.200 Nicotine dependence, unspecified, uncomplicated; G47.33 Obstructive sleep apnea (adult) (pediatric); M54.59 Other low back pain; Z79.899 Other long term (current) drug therapy; F41.9 Anxiety disorder, unspecified

== ENCOUNTER 2021-10-16 04:16 | Inpatient (IN) | payer OTHER ==
[~2021-10-16] VITALS: Ht 175.3 cm; Wt 61.3 kg
[~2021-10-16 04:16] MED LIST changes: +ALBU2.5V10 INH; +AZIT500T5 PO; +CEFD300C41 PO; +IPRA2IN NEB; +VENTAER INH
[2021-10-16] MEDS: COMBIVENT RESPIMAT 100-20MCG INHALER 4GM INH SCH ×2 (04:45→05:05)
[2021-10-16 04:51] LABS: ABG PARTIAL PRESSURE O2 257.4 mmHg (75.0-100.0)
[2021-10-16 04:52] LABS: ABG BASE EXCESS 5.1 (-2.0-2.0); ABG HCO3 34.8 MEQ/L (22.0-26.0); ABG O2 SATURATION 99.2 % (95.0-99.0); ABG STANDARD HCO3 29.1 MEQ/L (22.0-26.0); ABG TOTAL CO2 37.1 MEQ/L (22.0-29.0); ABG pH (ARTERIAL) 7.278 UNITS (7.350-7.450)
[2021-10-16 04:55] LABS: BASO # 0.1 10^3/uL (0.0-0.2); BASO % 0.9 % (0.0-1.0); EOS # 0.3 10^3/uL (0.0-0.5); EOS % 2.1 % (0.0-3.0); HEMATOCRIT 48.3 % (42.0-52.0); HEMOGLOBIN 15.2 g/dl (13.5-17.5); LYMPH # 2.8 10^3/uL (1.5-5.0); LYMPH % 21.7 % (24.0-44.0); MEAN CORPUSCULAR HEMOGLOBIN 30.3 pg (27.0-33.0); MEAN CORPUSCULAR HGB CONC 31.5 g/dl (32.0-36.5); MEAN CORPUSCULAR VOLUME 96.2 fl (80.0-96.0); MONO # 0.9 10^3/uL (0.0-0.8); MONO % 6.8 % (2.0-8.0); NEUTROPHILS # 8.6 10^3/uL (1.5-8.5); PLATELET COUNT, AUTOMATED 401 10^3/uL (150-450); RED BLOOD COUNT 5.02 10^6/uL (4.30-6.10); WHITE BLOOD COUNT 12.7 10^3/uL (4.0-10.0)
[2021-10-16 04:57] LABS: ABG PARTIAL PRESSURE CO2 76.1 mmHg (35.0-45.0)
[2021-10-16 05:22] LABS: MB/CK RELATIVE INDEX 3.85 (< OR =4)
[2021-10-16] MEDS ORDERED: cefTRIAXone SOD 2 GM in D5W MINI-BAG PLUS 50 ML IV ONE (05:25)
[2021-10-16 05:30] LABS: ALBUMIN 3.5 GM/DL (3.2-5.2); ALT/SGPT 24 U/L (12-78); BILIRUBIN,DIRECT < 0.1 MG/DL (0.0-0.2); BILIRUBIN,TOTAL 0.3 MG/DL (0.2-1.0); BLOOD UREA NITROGEN 10 MG/DL (7-18); CALCIUM LEVEL 9.1 MG/DL (8.5-10.1); CARBON DIOXIDE LEVEL 33 MEQ/L (21-32); CHLORIDE LEVEL 105 MEQ/L (98-107); CREATININE FOR GFR 0.71 MG/DL (0.70-1.30); GLOMERULAR FILTRATION RATE > 60.0 (>60); GLUCOSE, FASTING 121 MG/DL (70-100); NT-PRO BNP 22 PG/ML (<125); POTASSIUM SERUM 4.3 MEQ/L (3.5-5.1); SODIUM LEVEL 142 MEQ/L (136-145); TOTAL PROTEIN 7.4 GM/DL (6.4-8.2)
[2021-10-16 07:18] LABS: ABG BASE EXCESS 4.3 (-2.0-2.0); ABG HCO3 34.2 MEQ/L (22.0-26.0); ABG O2 SATURATION 99.1 % (95.0-99.0); ABG STANDARD HCO3 28.4 MEQ/L (22.0-26.0); ABG TOTAL CO2 36.6 MEQ/L (22.0-29.0); ABG pH (ARTERIAL) 7.265 UNITS (7.350-7.450)
[2021-10-16 07:21] LABS: ABG PARTIAL PRESSURE CO2 77.1 mmHg (35.0-45.0)
[2021-10-16] MEDS: IPRATROPIUM 0.5MG/ALBUTEROL 2.5MG INH SOL UD 3ML (DUONEB) NEB SCH ×4 (08:00→23:06)
[2021-10-16] MEDS ORDERED: VENTAER INH (08:28)
[2021-10-16] MEDS ORDERED: IPRA2IN NEB (08:28)
[2021-10-16] MEDS ORDERED: ALB2.5NEB INH (08:28)
[2021-10-16] MEDS ORDERED: HOME MED LIST COMPLETE! XX SCH (08:30)
[2021-10-16] MEDS ORDERED: methylPREDNISolone 40MG 1ML VIAL IV STA (08:45)
[2021-10-16] MEDS ORDERED: AZITHROMYCIN INJ 500 MG, VIAL MATE ADAPTER 1 EACH in NS 250 ML IV STA ×2 (08:47→13:48)
[2021-10-16] MEDS ORDERED: CHLORHEXIDINE GLUCONATE 0.12 % 15ML UDC (PERIDEX ORAL RINSE) MT SCH (09:00)
[2021-10-16 09:58] LABS: ABG BASE EXCESS 1.3 (-2.0-2.0); ABG HCO3 29.3 MEQ/L (22.0-26.0); ABG PARTIAL PRESSURE O2 84.7 mmHg (75.0-100.0); ABG STANDARD HCO3 25.6 MEQ/L (22.0-26.0); ABG TOTAL CO2 31.2 MEQ/L (22.0-29.0)
[2021-10-16] MEDS: ENOXAPARIN 40MG/0.4ML SYRINGE (J1650 PER 10MG) SC SCH (11:33)
[2021-10-16 12:00] VITALS: BP 113/70
[2021-10-16 13:48] LABS: ABG BASE EXCESS 3.9 (-2.0-2.0); ABG HCO3 30.2 MEQ/L (22.0-26.0); ABG O2 SATURATION 97.7 % (95.0-99.0); ABG PARTIAL PRESSURE CO2 51.8 mmHg (35.0-45.0); ABG PARTIAL PRESSURE O2 98.9 mmHg (75.0-100.0); ABG TOTAL CO2 31.8 MEQ/L (22.0-29.0); ABG pH (ARTERIAL) 7.384 UNITS (7.350-7.450)
[2021-10-16 16:00] VITALS: BP 118/82
[2021-10-16 16:52] VITALS: BP 112/77
[2021-10-16 20:15] VITALS: BP 127/61
[2021-10-16 22:00] VITALS: BP 98/62
[2021-10-16] MEDS ORDERED: methylPREDNISolone 40MG 1ML VIAL IV SCH (22:00)
[2021-10-17] VITALS (11 sets, daily range): BP systolic 98–132; BP diastolic 66–88; O2SAT 96–99
[2021-10-17] MEDS: IPRATROPIUM 0.5MG/ALBUTEROL 2.5MG INH SOL UD 3ML (DUONEB) NEB SCH ×6 (03:22→23:16)
[2021-10-17 05:50] LABS: ABG BASE EXCESS 6.1 (-2.0-2.0); ABG HCO3 32.1 MEQ/L (22.0-26.0); ABG O2 SATURATION 99.1 % (95.0-99.0); ABG PARTIAL PRESSURE CO2 52.2 mmHg (35.0-45.0); ABG TOTAL CO2 33.7 MEQ/L (22.0-29.0); ABG pH (ARTERIAL) 7.407 UNITS (7.350-7.450)
[2021-10-17 06:09] LABS: BASO % 0.1 % (0.0-1.0); HEMATOCRIT 40.4 % (42.0-52.0); LYMPH # 0.7 10^3/uL (1.5-5.0); LYMPH % 4.2 % (24.0-44.0); MEAN CORPUSCULAR HGB CONC 32.4 g/dl (32.0-36.5); MEAN CORPUSCULAR VOLUME 95.7 fl (80.0-96.0); MONO # 0.4 10^3/uL (0.0-0.8); MONO % 2.2 % (2.0-8.0); NEUTROPHILS # 16.1 10^3/uL (1.5-8.5); PLATELET COUNT, AUTOMATED 339 10^3/uL (150-450); RED BLOOD COUNT 4.22 10^6/uL (4.30-6.10); WHITE BLOOD COUNT 17.4 10^3/uL (4.0-10.0)
[2021-10-17 06:27] LABS: HEMOGLOBIN 13.1 g/dl (13.5-17.5)
[2021-10-17 07:08] LABS: BLOOD UREA NITROGEN 19 MG/DL (7-18); CALCIUM LEVEL 8.8 MG/DL (8.5-10.1); CARBON DIOXIDE LEVEL 33 MEQ/L (21-32); CHLORIDE LEVEL 102 MEQ/L (98-107); CREATININE FOR GFR 0.77 MG/DL (0.70-1.30); GLOMERULAR FILTRATION RATE > 60.0 (>60); GLUCOSE, FASTING 144 MG/DL (70-100); MAGNESIUM LEVEL 2.1 MG/DL (1.8-2.4); POTASSIUM SERUM 4.2 MEQ/L (3.5-5.1); SODIUM LEVEL 138 MEQ/L (136-145)
[2021-10-17] MEDS ORDERED: PRED10TA2 PO (09:22)
[2021-10-17] MEDS ORDERED: TIOT18INH INH (09:22)
[2021-10-17] MEDS ORDERED: SYMB16INH INH (09:22)
[2021-10-17] MEDS ORDERED: NICO1DIS12 TD (09:23)
[2021-10-17] MEDS: ENOXAPARIN 40MG/0.4ML SYRINGE (J1650 PER 10MG) SC SCH (09:31)
[2021-10-17] MEDS: predniSONE 20 MG TAB PO SCH (09:31)
[2021-10-17] MEDS ORDERED: cefTRIAXone SOD 1 GM in D5W MINI-BAG PLUS 50 ML IV SCH (10:00)
[2021-10-17] MEDS ORDERED: AZITHROMYCIN INJ 500 MG, VIAL MATE ADAPTER 1 EACH in NS 250 ML IV SCH (10:00)
[2021-10-17] MEDS: AZITHROMYCIN 250MG TABLET PO SCH (12:25)
[2021-10-17] MEDS ORDERED: VARE1TAB7 PO (13:35)
[2021-10-17] MEDS ORDERED: guaiFENesin ER 600 MG TAB PO ONE (14:00)
[2021-10-17] MEDS: guaiFENesin ER 600 MG TAB PO SCH (21:11)
[2021-10-18] VITALS (9 sets, daily range): BP systolic 104–126; BP diastolic 62–83; O2SAT 90–94
[2021-10-18] MEDS: IPRATROPIUM 0.5MG/ALBUTEROL 2.5MG INH SOL UD 3ML (DUONEB) NEB SCH ×5 (03:20→20:11)
[2021-10-18 06:10] LABS: BASO # 0.1 10^3/uL (0.0-0.2); BASO % 0.5 % (0.0-1.0); EOS % 0.2 % (0.0-3.0); HEMATOCRIT 41.4 % (42.0-52.0); HEMOGLOBIN 13.4 g/dl (13.5-17.5); LYMPH # 2.3 10^3/uL (1.5-5.0); LYMPH % 14.9 % (24.0-44.0); MEAN CORPUSCULAR HEMOGLOBIN 30.9 pg (27.0-33.0); MEAN CORPUSCULAR HGB CONC 32.4 g/dl (32.0-36.5); MEAN CORPUSCULAR VOLUME 95.4 fl (80.0-96.0); MONO # 1.3 10^3/uL (0.0-0.8); MONO % 8.3 % (2.0-8.0); NEUTROPHILS # 11.6 10^3/uL (1.5-8.5); NEUTROPHILS % 75.3 % (36.0-66.0); PLATELET COUNT, AUTOMATED 329 10^3/uL (150-450); RED BLOOD COUNT 4.34 10^6/uL (4.30-6.10); WHITE BLOOD COUNT 15.4 10^3/uL (4.0-10.0)
[2021-10-18 06:41] LABS: BLOOD UREA NITROGEN 18 MG/DL (7-18); CALCIUM LEVEL 9.1 MG/DL (8.5-10.1); CARBON DIOXIDE LEVEL 32 MEQ/L (21-32); CHLORIDE LEVEL 104 MEQ/L (98-107); CREATININE FOR GFR 0.65 MG/DL (0.70-1.30); GLOMERULAR FILTRATION RATE > 60.0 (>60); GLUCOSE, FASTING 99 MG/DL (70-100); POTASSIUM SERUM 4.2 MEQ/L (3.5-5.1); SODIUM LEVEL 141 MEQ/L (136-145)
[2021-10-18] MEDS ORDERED: VANCOMYCIN HCL 1,000 MG, VIAL MATE ADAPTER 1 EACH in NS 250 ML IV SCH (08:25)
[2021-10-18] MEDS: AZITHROMYCIN 250MG TABLET PO SCH (09:56)
[2021-10-18] MEDS: predniSONE 20 MG TAB PO SCH (09:56)
[2021-10-18] MEDS: guaiFENesin ER 600 MG TAB PO SCH ×2 (09:57→20:45)
[2021-10-18] MEDS: ENOXAPARIN 40MG/0.4ML SYRINGE (J1650 PER 10MG) SC SCH (09:57)
[2021-10-18] MEDS ORDERED: VANCOMYCIN HCL 750 MG, VIAL MATE ADAPTER 1 EACH in D5W 250 ML IV ONE (10:00)
[2021-10-18] MEDS ORDERED: VANCOMYCIN HCL 500 MG in D5W MINI-BAG PLUS 100 ML IV ONE (11:00)
[2021-10-18] MEDS: VANCOMYCIN HCL 750 MG, VIAL MATE ADAPTER 1 EACH in D5W 250 ML IV SCH (17:50)
[2021-10-19] MEDS: VANCOMYCIN HCL 750 MG, VIAL MATE ADAPTER 1 EACH in D5W 250 ML IV SCH (02:15)
[2021-10-19] MEDS: IPRATROPIUM 0.5MG/ALBUTEROL 2.5MG INH SOL UD 3ML (DUONEB) NEB SCH ×4 (03:38→11:13)
[2021-10-19 06:01] VITALS: BP 113/80
[2021-10-19 06:07] LABS: BASO # 0.1 10^3/uL (0.0-0.2); BASO % 0.4 % (0.0-1.0); EOS % 0.2 % (0.0-3.0); HEMATOCRIT 42.6 % (42.0-52.0); HEMOGLOBIN 13.8 g/dl (13.5-17.5); LYMPH # 2.3 10^3/uL (1.5-5.0); LYMPH % 17.8 % (24.0-44.0); MEAN CORPUSCULAR HEMOGLOBIN 30.2 pg (27.0-33.0); MEAN CORPUSCULAR HGB CONC 32.4 g/dl (32.0-36.5); MEAN CORPUSCULAR VOLUME 93.2 fl (80.0-96.0); MONO # 1.2 10^3/uL (0.0-0.8); MONO % 9.2 % (2.0-8.0); NEUTROPHILS # 9.3 10^3/uL (1.5-8.5); NEUTROPHILS % 71.3 % (36.0-66.0); PLATELET COUNT, AUTOMATED 363 10^3/uL (150-450); RED BLOOD COUNT 4.57 10^6/uL (4.30-6.10)
[2021-10-19 06:27] LABS: BLOOD UREA NITROGEN 12 MG/DL (7-18); CARBON DIOXIDE LEVEL 32 MEQ/L (21-32); CHLORIDE LEVEL 103 MEQ/L (98-107); CREATININE FOR GFR 0.66 MG/DL (0.70-1.30); GLOMERULAR FILTRATION RATE > 60.0 (>60); GLUCOSE, FASTING 92 MG/DL (70-100); POTASSIUM SERUM 3.8 MEQ/L (3.5-5.1); SODIUM LEVEL 140 MEQ/L (136-145)
[2021-10-19] MEDS ORDERED: AZIT-12 PO (07:46)
[2021-10-19 07:59] VITALS: O2SAT 96
[2021-10-19] MEDS: predniSONE 20 MG TAB PO SCH (08:34)
[2021-10-19] MEDS: ENOXAPARIN 40MG/0.4ML SYRINGE (J1650 PER 10MG) SC SCH (08:34)
[2021-10-19] MEDS: AZITHROMYCIN 250MG TABLET PO SCH (08:34)
[2021-10-19] MEDS: guaiFENesin ER 600 MG TAB PO SCH (08:34)
[2021-10-19 15:06] LABS: BODY FLUID CULTURE Not indicated. (.); LEGIONELLA ANTIGEN URINE Negative (Negative); ORGANISM ID Not indicated. (.); SPECIMEN SOURCE Urine (.); URINE STREP PNEUMONIAE ANTIGEN Negative (Negative)
== END 2021-10-19 11:30 | disposition home or self-care (01) | DRG 133 ==
LOC: M ED 04:16 → M ED INP 08:39 → M ICU 10:17 → M MSPAV 10-17 21:58
PROVIDERS: ADMIT Internal Medicine Pulmonary Disease; ATTEND General Practice
DX: J96.01 Acute respiratory failure with hypoxia (principal); J44.1 Chronic obstructive pulmonary disease with (acute) exacerbation; F17.210 Nicotine dependence, cigarettes, uncomplicated; F20.9 Schizophrenia, unspecified; J96.02 Acute respiratory failure with hypercapnia; Z20.822 Contact with and (suspected) exposure to COVID-19; B95.8 Unspecified staphylococcus as the cause of diseases classified elsewhere; D72.829 Elevated white blood cell count, unspecified; T38.0X5A Adverse effect of glucocorticoids and synthetic analogues, initial encounter; Z79.51 Long term (current) use of inhaled steroids; Z79.899 Other long term (current) drug therapy; Z66 Do not resuscitate

== ENCOUNTER 2022-02-18 16:59 | Inpatient (IN) | payer OTHER ==
[~2022-02-18] VITALS: Ht 175.3 cm; Wt 66.2 kg
[~2022-02-18 16:59] MED LIST changes: +ALB2.5NEB INH; +LEVO1TAB39; -LEVO500T4; +NICO1DIS12 TD; +SYMB16INH INH; +VARE1TAB7 PO
[2022-02-18] MEDS ORDERED: dexameTHASONE 20MG/5ML VIAL (J1100 PER 1MG) IV ONE (17:35)
[2022-02-18] MEDS: COMBIVENT RESPIMAT 100-20MCG INHALER 4GM INH SCH ×3 (17:43→17:58)
[2022-02-18 17:52] LABS: BASO # 0.1 10^3/uL (0.0-0.2); BASO % 0.7 % (0.0-1.0); EOS # 0.1 10^3/uL (0.0-0.5); EOS % 0.6 % (0.0-3.0); HEMATOCRIT 49.4 % (42.0-52.0); HEMOGLOBIN 15.8 g/dl (13.5-17.5); LYMPH # 1.1 10^3/uL (1.5-5.0); LYMPH % 9.8 % (24.0-44.0); MEAN CORPUSCULAR HEMOGLOBIN 30.3 pg (27.0-33.0); MEAN CORPUSCULAR VOLUME 94.6 fl (80.0-96.0); MONO % 9.7 % (2.0-8.0); NEUTROPHILS # 8.5 10^3/uL (1.5-8.5); NEUTROPHILS % 78.5 % (36.0-66.0); PLATELET COUNT, AUTOMATED 339 10^3/uL (150-450); RED BLOOD COUNT 5.22 10^6/uL (4.30-6.10); WHITE BLOOD COUNT 10.8 10^3/uL (4.0-10.0)
[2022-02-18 18:07] LABS: ABG BASE EXCESS 6.3 (-2.0-2.0); ABG HCO3 33.6 MEQ/L (22.0-26.0); ABG O2 SATURATION 93.2 % (95.0-99.0); ABG PARTIAL PRESSURE CO2 58.2 mmHg (35.0-45.0); ABG PARTIAL PRESSURE O2 63.3 mmHg (75.0-100.0); ABG TOTAL CO2 35.4 MEQ/L (22.0-29.0); ABG pH (ARTERIAL) 7.379 UNITS (7.350-7.450)
[2022-02-18 18:33] LABS: ALBUMIN 3.8 G/DL (3.2-5.2); ALT/SGPT 21 U/L (7.0-40); BILIRUBIN,DIRECT 0.2 MG/DL (<0.4); BILIRUBIN,TOTAL 0.6 MG/DL (0.3-1.2); BLOOD UREA NITROGEN 11 MG/DL (9-23); CALCIUM LEVEL 9.1 MG/DL (8.5-10.1); CARBON DIOXIDE LEVEL 35 MMOL/L (20-31); CHLORIDE LEVEL 99 MMOL/L (98-107); CPK CREATINE PHOSPHOKINASE 114 U/L (46-171); CREATININE FOR GFR 0.59 MG/DL (0.70-1.30); GLOMERULAR FILTRATION RATE > 60.0 (>60); GLUCOSE, FASTING 86 MG/DL (60-100); MB/CK RELATIVE INDEX 4.38 (< OR =4); POTASSIUM SERUM 3.8 MMOL/L (3.5-5.1); SODIUM LEVEL 141 MMOL/L (136-145); TOTAL PROTEIN 7.1 G/DL (5.7-8.2)
[2022-02-18] MEDS ORDERED: ISOVUE-370 76% 100ML VIAL As Ordered ONE (18:43)
[2022-02-18] MEDS ORDERED: PRED20TA PO (21:21)
[2022-02-18] MEDS ORDERED: AZIT500T5 PO (21:21)
[2022-02-18] MEDS ORDERED: NS 1,000 ML IV ONE (21:55)
[2022-02-18] MEDS ORDERED: SPIR1CAP INH (22:11)
[2022-02-18] MEDS ORDERED: SYMB16INH INH (22:11)
[2022-02-18] MEDS ORDERED: IPRA2IN INH (22:11)
[2022-02-18] MEDS ORDERED: NICO21DI9 TD (22:11)
[2022-02-18] MEDS ORDERED: HOME MED LIST COMPLETE! XX SCH (22:15)
[2022-02-18] MEDS ORDERED: ALBUTEROL SULFATE 2.5 MG/0.5 ML INH NEB SOLN NEB PRN (22:55)
[2022-02-18 23:54] VITALS: BP 116/81
[2022-02-19] MEDS: methylPREDNISolone 40MG 1ML VIAL IV SCH ×4 (00:14→23:26)
[2022-02-19] MEDS: NS 1,000 ML IV SCH ×4 (00:15→23:26)
[2022-02-19] MEDS: IPRATROPIUM 0.5MG/ALBUTEROL 2.5MG INH SOL UD 3ML (DUONEB) NEB SCH ×5 (03:05→19:58)
[2022-02-19 05:00] VITALS: BP 103/63
[2022-02-19] MEDS: SYMBICORT 160/4.5MCG INHALER 6GM INH SCH ×2 (07:27→19:58)
[2022-02-19] MEDS: NICOTINE 21MG/24HR 1 EA TRANSDERMAL TD SCH (08:43)
[2022-02-19] MEDS: ENOXAPARIN 40MG/0.4ML SYRINGE (J1650 PER 10MG) SC SCH (08:44)
[2022-02-19 09:22] LABS: BASO % 0.1 % (0.0-1.0); HEMATOCRIT 42.3 % (42.0-52.0); LYMPH # 0.7 10^3/uL (1.5-5.0); MEAN CORPUSCULAR HGB CONC 31.9 g/dl (32.0-36.5); MONO # 0.2 10^3/uL (0.0-0.8); MONO % 2.3 % (2.0-8.0); NEUTROPHILS # 9.3 10^3/uL (1.5-8.5); PLATELET COUNT, AUTOMATED 312 10^3/uL (150-450); WHITE BLOOD COUNT 10.4 10^3/uL (4.0-10.0)
[2022-02-19 09:34] LABS: HEMOGLOBIN 13.5 g/dl (13.5-17.5)
[2022-02-19 10:30] LABS: BLOOD UREA NITROGEN 15 MG/DL (9-23); CALCIUM LEVEL 8.4 MG/DL (8.5-10.1); CARBON DIOXIDE LEVEL 32 MMOL/L (20-31); CHLORIDE LEVEL 101 MMOL/L (98-107); CREATININE FOR GFR 0.52 MG/DL (0.70-1.30); GLOMERULAR FILTRATION RATE > 60.0 (>60); GLUCOSE, FASTING 186 MG/DL (60-100); POTASSIUM SERUM 4.3 MMOL/L (3.5-5.1); SODIUM LEVEL 140 MMOL/L (136-145)
[2022-02-19] MEDS: AZITHROMYCIN 250MG TABLET PO SCH (12:41)
[2022-02-19 15:00] VITALS: BP 100/62
[2022-02-19 21:00] VITALS: BP 110/79
[2022-02-19 22:32] LABS: FREE T4 1.08 NG/DL (0.89-1.76); THYROID STIMULATING HORMONE 0.091 uIU/ML (0.55-4.78)
[2022-02-20] MEDS: IPRATROPIUM 0.5MG/ALBUTEROL 2.5MG INH SOL UD 3ML (DUONEB) NEB SCH ×5 (03:54→20:27)
[2022-02-20 06:00] VITALS: BP 119/75
[2022-02-20 06:21] LABS: BASO % 0.1 % (0.0-1.0); HEMATOCRIT 38.7 % (42.0-52.0); HEMOGLOBIN 12.6 g/dl (13.5-17.5); LYMPH # 0.6 10^3/uL (1.5-5.0); LYMPH % 3.4 % (24.0-44.0); MEAN CORPUSCULAR HEMOGLOBIN 31.1 pg (27.0-33.0); MEAN CORPUSCULAR HGB CONC 32.6 g/dl (32.0-36.5); MEAN CORPUSCULAR VOLUME 95.6 fl (80.0-96.0); MONO # 0.7 10^3/uL (0.0-0.8); MONO % 4.2 % (2.0-8.0); NEUTROPHILS # 15.7 10^3/uL (1.5-8.5); NEUTROPHILS % 91.8 % (36.0-66.0); PLATELET COUNT, AUTOMATED 299 10^3/uL (150-450); RED BLOOD COUNT 4.05 10^6/uL (4.30-6.10); WHITE BLOOD COUNT 17.1 10^3/uL (4.0-10.0)
[2022-02-20 06:55] LABS: ALBUMIN 3.2 G/DL (3.2-5.2); ALT/SGPT 19 U/L (7.0-40); BILIRUBIN,TOTAL 0.3 MG/DL (0.3-1.2); BLOOD UREA NITROGEN 12 MG/DL (9-23); CALCIUM LEVEL 8.4 MG/DL (8.5-10.1); CARBON DIOXIDE LEVEL 30 MMOL/L (20-31); CHLORIDE LEVEL 104 MMOL/L (98-107); CREATININE FOR GFR 0.57 MG/DL (0.70-1.30); GLOMERULAR FILTRATION RATE > 60.0 (>60); GLUCOSE, FASTING 139 MG/DL (60-100); POTASSIUM SERUM 3.9 MMOL/L (3.5-5.1); SODIUM LEVEL 142 MMOL/L (136-145); TOTAL PROTEIN 5.6 G/DL (5.7-8.2)
[2022-02-20] MEDS: SYMBICORT 160/4.5MCG INHALER 6GM INH SCH ×2 (08:07→20:27)
[2022-02-20 08:16] LABS: TOTAL T3 117.4 NG/DL (60.0-181.0)
[2022-02-20] MEDS: NICOTINE 21MG/24HR 1 EA TRANSDERMAL TD SCH (09:00)
[2022-02-20] MEDS: predniSONE 20 MG TAB PO SCH (09:12)
[2022-02-20] MEDS: AZITHROMYCIN 250MG TABLET PO SCH (09:12)
[2022-02-20] MEDS: ENOXAPARIN 40MG/0.4ML SYRINGE (J1650 PER 10MG) SC SCH (09:20)
[2022-02-20] MEDS ORDERED: LORazepam 2 MG TAB PO PRN (13:55)
[2022-02-20 14:00] VITALS: BP 124/83
[2022-02-20] MEDS: DIVALPROEX 250MG *ER* TAB PO SCH (14:17)
[2022-02-20 20:00] VITALS: BP_SYST 128; BP_SYST 129; BP_DIAS 62; BP_DIAS 87
[2022-02-21 00:23] LABS: APPEARANCE, URINE MANUAL CLEAR (CLEAR); COLOR, URINE MANUAL YELLOW (YELLOW); GLUCOSE, URINE (UA) MANUAL 2+(250 MG/DL) mg/dL (NEGATIVE); PROTEIN, URINE MANUAL NEGATIVE (NEGATIVE)
[2022-02-21 00:24] LABS: BILIRUBIN, URINE MANUAL NEGATIVE (NEGATIVE); BLOOD URINE MANUAL NEGATIVE (NEGATIVE); KETONE, URINE MANUAL NEGATIVE (NEGATIVE); LEUKOCYTE ESTERASE, URINE MAN NEGATIVE (NEGATIVE); NITRITE, URINE MANUAL NEGATIVE (NEGATIVE); UROBILINOGEN, URINE MANUAL NORMAL (NORMAL)
[2022-02-21] MEDS: IPRATROPIUM 0.5MG/ALBUTEROL 2.5MG INH SOL UD 3ML (DUONEB) NEB SCH ×6 (00:24→21:27)
[2022-02-21 00:52] LABS: AMPHETAMINES URINE REFLEX NEGATIVE (NEGATIVE); BARBITURATES URINE REFLEX NEGATIVE (NEGATIVE); BENZODIAZEPINES URINE REFLEX NEGATIVE (NEGATIVE); COCAINE METABOLITE URINE REFLE NEGATIVE (NEGATIVE); METHADONE URINE REFLEX NEGATIVE (NEGATIVE); OPIATES URINE REFLEX NEGATIVE (NEGATIVE); PHENCYCLIDINE URINE REFLEX NEGATIVE (NEGATIVE)
[2022-02-21 01:20] LABS: CANNABINOIDS URINE REFLEX PENDING CONFIRMATION (NEGATIVE)
[2022-02-21 06:00] VITALS: BP 126/87
[2022-02-21 06:30] LABS: BASO % 0.1 % (0.0-1.0); HEMATOCRIT 39.5 % (42.0-52.0); HEMOGLOBIN 12.6 g/dl (13.5-17.5); LYMPH # 1.8 10^3/uL (1.5-5.0); LYMPH % 11.7 % (24.0-44.0); MEAN CORPUSCULAR HEMOGLOBIN 30.6 pg (27.0-33.0); MEAN CORPUSCULAR HGB CONC 31.9 g/dl (32.0-36.5); MEAN CORPUSCULAR VOLUME 95.9 fl (80.0-96.0); MONO % 10.6 % (2.0-8.0); NEUTROPHILS # 11.9 10^3/uL (1.5-8.5); NEUTROPHILS % 77.1 % (36.0-66.0); PLATELET COUNT, AUTOMATED 280 10^3/uL (150-450); RED BLOOD COUNT 4.12 10^6/uL (4.30-6.10); WHITE BLOOD COUNT 15.4 10^3/uL (4.0-10.0)
[2022-02-21 07:01] LABS: MONO # 1.6 10^3/uL (0.0-0.8)
[2022-02-21 07:25] LABS: ALBUMIN 3.3 G/DL (3.2-5.2); ALT/SGPT 38 U/L (7.0-40); BILIRUBIN,TOTAL 0.3 MG/DL (0.3-1.2); BLOOD UREA NITROGEN 12 MG/DL (9-23); CALCIUM LEVEL 8.7 MG/DL (8.5-10.1); CARBON DIOXIDE LEVEL 32 MMOL/L (20-31); CHLORIDE LEVEL 102 MMOL/L (98-107); CREATININE FOR GFR 0.55 MG/DL (0.70-1.30); GLOMERULAR FILTRATION RATE > 60.0 (>60); GLUCOSE, FASTING 95 MG/DL (60-100); POTASSIUM SERUM 3.5 MMOL/L (3.5-5.1); SODIUM LEVEL 143 MMOL/L (136-145); TOTAL PROTEIN 5.8 G/DL (5.7-8.2)
[2022-02-21] MEDS: NICOTINE 21MG/24HR 1 EA TRANSDERMAL TD SCH (07:54)
[2022-02-21] MEDS: AZITHROMYCIN 250MG TABLET PO SCH (07:54)
[2022-02-21] MEDS: predniSONE 20 MG TAB PO SCH (07:55)
[2022-02-21] MEDS: DIVALPROEX 250MG *ER* TAB PO SCH (07:55)
[2022-02-21] MEDS: ENOXAPARIN 40MG/0.4ML SYRINGE (J1650 PER 10MG) SC SCH (07:55)
[2022-02-21] MEDS: SYMBICORT 160/4.5MCG INHALER 6GM INH SCH ×2 (08:02→21:26)
[2022-02-21] MEDS ORDERED: LEVALBUTEROL 1.25 MG/0.5 ML CONCENTRATE NEB INH PRN (08:30)
[2022-02-21 14:00] VITALS: BP 117/78
[2022-02-21 20:00] VITALS: BP 136/101
[2022-02-21] MEDS: METOPROLOL TART 12.5 MG PER 1/2 TAB PO SCH (21:18)
[2022-02-22] MEDS: IPRATROPIUM 0.5MG/ALBUTEROL 2.5MG INH SOL UD 3ML (DUONEB) NEB SCH ×3 (00:08→08:00)
[2022-02-22 05:55] VITALS: BP 133/81
[2022-02-22 06:16] LABS: BASO % 0.3 % (0.0-1.0); EOS % 0.1 % (0.0-3.0); HEMATOCRIT 40.4 % (42.0-52.0); HEMATOCRIT 40.6 % (42.0-52.0); HEMOGLOBIN 12.9 g/dl (13.5-17.5); LYMPH # 2.1 10^3/uL (1.5-5.0); LYMPH % 18.3 % (24.0-44.0); MEAN CORPUSCULAR HEMOGLOBIN 30.6 pg (27.0-33.0); MEAN CORPUSCULAR HGB CONC 31.8 g/dl (32.0-36.5); MEAN CORPUSCULAR HGB CONC 31.9 g/dl (32.0-36.5); MEAN CORPUSCULAR VOLUME 95.7 fl (80.0-96.0); MEAN CORPUSCULAR VOLUME 96.4 fl (80.0-96.0); MONO # 1.4 10^3/uL (0.0-0.8); MONO % 11.8 % (2.0-8.0); NEUTROPHILS # 7.9 10^3/uL (1.5-8.5); NEUTROPHILS % 68.6 % (36.0-66.0); PLATELET COUNT, AUTOMATED 276 10^3/uL (150-450); PLATELET COUNT, AUTOMATED 285 10^3/uL (150-450); RED BLOOD COUNT 4.21 10^6/uL (4.30-6.10); RED BLOOD COUNT 4.22 10^6/uL (4.30-6.10); WHITE BLOOD COUNT 11.5 10^3/uL (4.0-10.0); WHITE BLOOD COUNT 11.6 10^3/uL (4.0-10.0)
[2022-02-22 06:45] LABS: ALBUMIN 3.2 G/DL (3.2-5.2); ALT/SGPT 32 U/L (7.0-40); BILIRUBIN,TOTAL 0.5 MG/DL (0.3-1.2); BLOOD UREA NITROGEN 13 MG/DL (9-23); CALCIUM LEVEL 8.8 MG/DL (8.5-10.1); CARBON DIOXIDE LEVEL 33 MMOL/L (20-31); CHLORIDE LEVEL 100 MMOL/L (98-107); CREATININE FOR GFR 0.63 MG/DL (0.70-1.30); GLOMERULAR FILTRATION RATE > 60.0 (>60); GLUCOSE, FASTING 120 MG/DL (60-100); POTASSIUM SERUM 3.3 MMOL/L (3.5-5.1); SODIUM LEVEL 142 MMOL/L (136-145); TOTAL PROTEIN 5.6 G/DL (5.7-8.2)
[2022-02-22] MEDS: SYMBICORT 160/4.5MCG INHALER 6GM INH SCH ×2 (08:15→19:19)
[2022-02-22] MEDS: NICOTINE 21MG/24HR 1 EA TRANSDERMAL TD SCH (08:46)
[2022-02-22] MEDS: ENOXAPARIN 40MG/0.4ML SYRINGE (J1650 PER 10MG) SC SCH (08:48)
[2022-02-22] MEDS: predniSONE 20 MG TAB PO SCH (08:48)
[2022-02-22] MEDS: METOPROLOL TART 12.5 MG PER 1/2 TAB PO SCH ×2 (08:48→20:11)
[2022-02-22] MEDS: DIVALPROEX 250MG *ER* TAB PO SCH (08:49)
[2022-02-22] MEDS: LEVALBUTEROL 1.25 MG/0.5 ML CONCENTRATE NEB INH SCH ×4 (12:28→23:18)
[2022-02-22] MEDS: SODIUM CHLORIDE HYPERTONIC 3% 15ML NEB SOL INH SCH ×4 (12:28→23:18)
[2022-02-22 14:00] VITALS: BP 128/54
[2022-02-22] MEDS ORDERED: POTASSIUM CHLORIDE 10MEQ SR TABLET PO ONE (18:00)
[2022-02-22 20:45] VITALS: BP 119/67
[2022-02-23] MEDS: LEVALBUTEROL 1.25 MG/0.5 ML CONCENTRATE NEB INH SCH ×4 (03:01→15:50)
[2022-02-23] MEDS: SODIUM CHLORIDE HYPERTONIC 3% 15ML NEB SOL INH SCH ×4 (03:01→15:50)
[2022-02-23 05:24] VITALS: BP 119/82
[2022-02-23 06:07] LABS: BASO % 0.3 % (0.0-1.0); EOS % 0.2 % (0.0-3.0); HEMATOCRIT 41.7 % (42.0-52.0); HEMOGLOBIN 13.3 g/dl (13.5-17.5); LYMPH % 16.3 % (24.0-44.0); MEAN CORPUSCULAR HEMOGLOBIN 30.6 pg (27.0-33.0); MEAN CORPUSCULAR HGB CONC 31.9 g/dl (32.0-36.5); MEAN CORPUSCULAR VOLUME 95.9 fl (80.0-96.0); MONO # 1.3 10^3/uL (0.0-0.8); MONO % 10.4 % (2.0-8.0); NEUTROPHILS # 8.8 10^3/uL (1.5-8.5); NEUTROPHILS % 71.3 % (36.0-66.0); PLATELET COUNT, AUTOMATED 286 10^3/uL (150-450); RED BLOOD COUNT 4.35 10^6/uL (4.30-6.10); WHITE BLOOD COUNT 12.3 10^3/uL (4.0-10.0)
[2022-02-23 07:03] LABS: ALBUMIN 3.1 G/DL (3.2-5.2); ALT/SGPT 35 U/L (7.0-40); BILIRUBIN,TOTAL 0.3 MG/DL (0.3-1.2); BLOOD UREA NITROGEN 13 MG/DL (9-23); CALCIUM LEVEL 8.8 MG/DL (8.5-10.1); CARBON DIOXIDE LEVEL 33 MMOL/L (20-31); CHLORIDE LEVEL 100 MMOL/L (98-107); CREATININE FOR GFR 0.58 MG/DL (0.70-1.30); GLOMERULAR FILTRATION RATE > 60.0 (>60); GLUCOSE, FASTING 139 MG/DL (60-100); MAGNESIUM LEVEL 1.9 MG/DL (1.8-2.4); POTASSIUM SERUM 3.8 MMOL/L (3.5-5.1); SODIUM LEVEL 140 MMOL/L (136-145); TOTAL PROTEIN 5.6 G/DL (5.7-8.2)
[2022-02-23] MEDS: SYMBICORT 160/4.5MCG INHALER 6GM INH SCH (07:54)
[2022-02-23] MEDS: NICOTINE 21MG/24HR 1 EA TRANSDERMAL TD SCH (08:58)
[2022-02-23] MEDS: ENOXAPARIN 40MG/0.4ML SYRINGE (J1650 PER 10MG) SC SCH (08:58)
[2022-02-23] MEDS: DIVALPROEX 250MG *ER* TAB PO SCH (08:58)
[2022-02-23 09:00] VITALS: BP 120/84
[2022-02-23] MEDS ORDERED: predniSONE 20 MG TAB PO SCH (09:00)
[2022-02-23] MEDS: METOPROLOL TART 12.5 MG PER 1/2 TAB PO SCH (09:00)
[2022-02-23 09:01] VITALS: BP 120/84
[2022-02-23] MEDS ORDERED: PRED20TA PO (12:02)
[2022-02-23] MEDS ORDERED: SYMB16INH INH (12:02)
[2022-02-23] MEDS ORDERED: LEVAINH INH (12:02)
[2022-02-23] MEDS ORDERED: ALB2.5NEB INH (12:02)
[2022-02-23] MEDS ORDERED: METO1TAB87 PO (12:02)
[2022-02-23] MEDS ORDERED: SPIR1CAP INH (12:02)
[2022-02-23] MEDS ORDERED: IPRA2IN INH (12:02)
== END 2022-02-23 16:49 | disposition home or self-care (01) | DRG 140 ==
LOC: M ED 16:59 → M ED INP 22:57 → M MSPAV 22:57 → ENRESERV 23:28 → M MSPAV 23:55
PROVIDERS: ADMIT Family Medicine; ATTEND Internal Medicine
DX: J44.1 Chronic obstructive pulmonary disease with (acute) exacerbation (principal); K92.0 Hematemesis; F31.0 Bipolar disorder, current episode hypomanic; R00.0 Tachycardia, unspecified; F17.200 Nicotine dependence, unspecified, uncomplicated; Z91.14 Patient's other noncompliance with medication regimen; E05.90 Thyrotoxicosis, unspecified without thyrotoxic crisis or storm; Z79.899 Other long term (current) drug therapy; F14.10 Cocaine abuse, uncomplicated; F15.10 Other stimulant abuse, uncomplicated

== ENCOUNTER → 2022-10-13 | Outpatient (CLI) | payer OTHER ==
[~2022-10-13] MED LIST changes: +IPRA2IN INH; +LEVAINH INH; +METO1TAB87 PO; +NICO21DI9 TD; +SPIR1CAP INH
[2022-10-13 15:51] LABS: BASO # 0.1 10^3/uL (0.0-0.2); BASO % 1.3 % (0.0-1.0); EOS # 0.1 10^3/uL (0.0-0.5); EOS % 1.7 % (0.0-3.0); HEMATOCRIT 46.6 % (42.0-52.0); HEMOGLOBIN 15.2 g/dl (13.5-17.5); LYMPH # 2.1 10^3/uL (1.5-5.0); LYMPH % 24.6 % (24.0-44.0); MEAN CORPUSCULAR HEMOGLOBIN 30.8 pg (27.0-33.0); MEAN CORPUSCULAR HGB CONC 32.6 g/dl (32.0-36.5); MEAN CORPUSCULAR VOLUME 94.5 fl (80.0-96.0); MONO # 0.7 10^3/uL (0.0-0.8); MONO % 8.6 % (2.0-8.0); NEUTROPHILS # 5.4 10^3/uL (1.5-8.5); NEUTROPHILS % 63.3 % (36.0-66.0); PLATELET COUNT, AUTOMATED 350 10^3/uL (150-450); RED BLOOD COUNT 4.93 10^6/uL (4.30-6.10); WHITE BLOOD COUNT 8.5 10^3/uL (4.0-10.0)
[2022-10-13 16:07] LABS: HEMOGLOBIN A1c 5.4 % (4.0-6.0)
[2022-10-13 16:50] LABS: ALKALINE PHOSPHATASE 90 U/L (46-116); ALT/SGPT 10 U/L (7.0-40); AST/SGOT 12 U/L (<34); BILIRUBIN,TOTAL 0.6 MG/DL (0.3-1.2); BLOOD UREA NITROGEN 13 MG/DL (9-23); CALCIUM LEVEL 9.2 MG/DL (8.5-10.1); CARBON DIOXIDE LEVEL 37 MMOL/L (20-31); CHLORIDE LEVEL 97 MMOL/L (98-107); CHOLESTEROL LEVEL 184 MG/DL (<200); CHOLESTEROL RISK RATIO 3.68 (<5); CREATININE FOR GFR 0.77 MG/DL (0.70-1.30); GLOMERULAR FILTRATION RATE > 60.0 (>56); GLUCOSE, FASTING 119 MG/DL (60-100); POTASSIUM SERUM 4.8 MMOL/L (3.5-5.1); SODIUM LEVEL 140 MMOL/L (136-145); TRIGLYCERIDES LEVEL 80 MG/DL (<150)
== END ==
LOC: M PLALAB 14:19
PROVIDERS: ATTEND Student in an Organized Health Care Education/Training Program
DX: Z13.220 Encounter for screening for lipoid disorders (principal)

== ENCOUNTER → 2022-11-16 | Outpatient (REF) | payer OTHER | LOC: M SFHCPLAZ 14:39 | PROVIDERS: ATTEND Family Medicine | DX: E05.90 Thyrotoxicosis, unspecified without thyrotoxic crisis or storm (principal); Z53.9 Procedure and treatment not carried out, unspecified reason ==

== ENCOUNTER → 2022-11-16 | Outpatient (CLI) | payer OTHER ==
[2022-11-16 16:48] LABS: VENOUS BASE EXCESS 9.2 (-2.0-2.0); VENOUS HCO3 40.3 MMOL/L (23.0-27.0); VENOUS O2 SATURATION 57.2 % (60.0-80.0); VENOUS PARTIAL PRESSURE CO2 87.8 mmHg (38.0-50.0); VENOUS PARTIAL PRESSURE O2 29.9 mmHg (30.0-50.0); VENOUS STANDARD HCO3 31.7 MMOL/L
[2022-11-16 17:31] LABS: FREE T4 0.87 NG/DL (0.89-1.76); THYROID STIMULATING HORMONE 0.705 uIU/ML (0.55-4.78)
== END ==
LOC: M PLALAB 15:17 → M LAB 15:17
PROVIDERS: ATTEND Student in an Organized Health Care Education/Training Program
DX: E05.90 Thyrotoxicosis, unspecified without thyrotoxic crisis or storm (principal); J43.9 Emphysema, unspecified

== ENCOUNTER 2023-01-18 03:38 | Inpatient (IN) | payer OTHER ==
[2023-01-18] VITALS (11 sets, daily range): BP systolic 100–124; BP diastolic 59–70; TEMP 98.4–99.2; O2SAT 94–99
[~2023-01-18] VITALS: Ht 170.2 cm; Wt 69.1 kg
[~2023-01-18 03:38] MED LIST changes: -CEFD300C41 PO; +CEFD300C42 PO
[2023-01-18] MEDS: IPRATROPIUM 0.5MG/ALBUTEROL 2.5MG INH SOL UD 3ML (DUONEB) NEB SCH ×3 (03:54→04:00)
[2023-01-18 03:57] LABS: BASO # 0.2 10^3/uL (0.0-0.2); BASO % 0.9 % (0.0-1.0); EOS % 0.2 % (0.0-3.0); HEMATOCRIT 45.6 % (42.0-52.0); HEMOGLOBIN 14.5 g/dl (13.5-17.5); LYMPH % 11.7 % (24.0-44.0); MEAN CORPUSCULAR HEMOGLOBIN 30.9 pg (27.0-33.0); MEAN CORPUSCULAR HGB CONC 31.8 g/dl (32.0-36.5); MONO % 5.7 % (2.0-8.0); NEUTROPHILS # 13.8 10^3/uL (1.5-8.5); NEUTROPHILS % 80.2 % (36.0-66.0); PLATELET COUNT, AUTOMATED 329 10^3/uL (150-450); WHITE BLOOD COUNT 17.3 10^3/uL (4.0-10.0)
[2023-01-18] MEDS ORDERED: ISOVUE-370 76% 100ML VIAL As Ordered ONE ×2 (04:01→04:17)
[2023-01-18 04:04] LABS: ABG O2 SATURATION 99.5 % (95.0-99.0); ABG PARTIAL PRESSURE O2 269.3 mmHg (75.0-100.0); ABG STANDARD HCO3 31.9 MMOL/L. (22.0-26.0); ABG TOTAL CO2 45.6 MMOL/L (22.0-29.0)
[2023-01-18] MEDS ORDERED: PIPERACILLIN/TAZOBACTAM SOD 4.5 GM in D5W MINI-BAG PLUS 50 ML IV ONE (04:05)
[2023-01-18 04:07] LABS: ABG PARTIAL PRESSURE CO2 120.4 mmHg (35.0-45.0)
[2023-01-18] MEDS ORDERED: FLUT12HF2 PO (04:45)
[2023-01-18] MEDS ORDERED: TIOT18INH INH (04:45)
[2023-01-18] MEDS ORDERED: HOME MED LIST COMPLETE! XX SCH (04:50)
[2023-01-18] MEDS ORDERED: MOM 30ML SUSPENSION UDC PO PRN (05:10)
[2023-01-18] MEDS ORDERED: ACETAMINOPHEN TAB 650MG DOSE (2X325MG) PO PRN (05:10)
[2023-01-18] MEDS ORDERED: IPRATROPIUM 0.5MG/ALBUTEROL 2.5MG INH SOL UD 3ML (DUONEB) NEB PRN (05:20)
[2023-01-18] MEDS ORDERED: LEVALBUTEROL 1.25MG 0.5ML CONCENTRATE NEB INH PRN (05:30)
[2023-01-18] MEDS ORDERED: cefTRIAXone SOD 1 GM in D5W MINI-BAG PLUS 50 ML IV SCH (06:00)
[2023-01-18] MEDS ORDERED: DOXYCYCLINE HYCLATE 100MG TABLET PO SCH (06:00)
[2023-01-18 06:20] LABS: ABG BASE EXCESS 7.9 (-2.0-2.0); ABG HCO3 38.1 MMOL/L (22.0-26.0); ABG O2 SATURATION 96.9 % (95.0-99.0); ABG STANDARD HCO3 31.7 MMOL/L. (22.0-26.0); ABG TOTAL CO2 40.6 MMOL/L (22.0-29.0); ABG pH (ARTERIAL) 7.283 UNITS (7.350-7.450)
[2023-01-18 06:29] LABS: ABG PARTIAL PRESSURE CO2 82.3 mmHg (35.0-45.0)
[2023-01-18] MEDS: SYMBICORT 160/4.5MCG INHALER 6GM INH SCH ×2 (07:54→19:05)
[2023-01-18] MEDS: ENOXAPARIN 40MG/0.4ML SYRINGE (J1650 PER 10MG) SC SCH (08:00)
[2023-01-18] MEDS ORDERED: IPRATROPIUM 0.5MG/ALBUTEROL 2.5MG INH SOL UD 3ML (DUONEB) NEB SCH (08:00)
[2023-01-18] MEDS ORDERED: LEVALBUTEROL 1.25MG 0.5ML CONCENTRATE NEB INH SCH (08:00)
[2023-01-18] MEDS ORDERED: PILL CUTTER 1 EACH XX PRN (11:15)
[2023-01-18] MEDS: AZITHROMYCIN 250MG TABLET PO SCH (11:52)
[2023-01-18 14:17] LABS: ALT/SGPT 17 U/L (1-41); AST/SGOT 19 U/L (5-40); BLOOD UREA NITROGEN 8 MG/DL (7-21); CALCIUM LEVEL 9.3 MG/DL (8.4-10.2); CARBON DIOXIDE LEVEL 37 MEQ/L (22-30); CHLORIDE LEVEL 93 MEQ/L (98-107); CREATININE FOR GFR 0.6 MG/DL (0.7-1.5); GLOMERULAR FILTRATION RATE > 60.0 (>56); GLUCOSE, FASTING 148 MG/DL (70-99); SODIUM LEVEL 141 MEQ/L (134-153)
[2023-01-18 14:18] LABS: ALBUMIN 4.6 G/DL (3.9-5.0); BILIRUBIN,TOTAL < 0.7 MG/DL (0.2-1.3); TOTAL PROTEIN 7.1 G/DL (6.3-8.2)
[2023-01-18 14:21] LABS: ALKALINE PHOSPHATASE 85 U/L (40-129)
[2023-01-18] MEDS ORDERED: REMDESIVIR 200 MG in NS 250 ML IV ONE (16:00)
[2023-01-18] MEDS: METOPROLOL TART 12.5 MG PER 1/2 TAB PO SCH (20:08)
[2023-01-19] VITALS (12 sets, daily range): BP systolic 91–114; BP diastolic 51–81; TEMP 98–98.9; O2SAT 94–98
[2023-01-19 05:33] LABS: BASO % 0.2 % (0.0-1.0); LYMPH # 1.6 10^3/uL (1.5-5.0); LYMPH % 10.1 % (24.0-44.0); MEAN CORPUSCULAR HEMOGLOBIN 30.8 pg (27.0-33.0); MEAN CORPUSCULAR HGB CONC 33.1 g/dl (32.0-36.5); MEAN CORPUSCULAR VOLUME 93.3 fl (80.0-96.0); MONO # 1.4 10^3/uL (0.0-0.8); MONO % 8.7 % (2.0-8.0); NEUTROPHILS # 12.7 10^3/uL (1.5-8.5); NEUTROPHILS % 80.4 % (36.0-66.0); PLATELET COUNT, AUTOMATED 241 10^3/uL (150-450); RED BLOOD COUNT 3.86 10^6/uL (4.30-6.10); WHITE BLOOD COUNT 15.8 10^3/uL (4.0-10.0)
[2023-01-19 05:40] LABS: HEMOGLOBIN 11.9 g/dl (13.5-17.5)
[2023-01-19 05:54] LABS: ALBUMIN 3.4 G/DL (3.2-5.2); ALKALINE PHOSPHATASE 72 U/L (46-116); ALT/SGPT 22 U/L (7.0-40); AST/SGOT 19 U/L (<34); BILIRUBIN,TOTAL 0.4 MG/DL (0.3-1.2); BLOOD UREA NITROGEN 19 MG/DL (9-23); CARBON DIOXIDE LEVEL 38 MMOL/L (20-31); CHLORIDE LEVEL 95 MMOL/L (98-107); CREATININE FOR GFR 0.57 MG/DL (0.70-1.30); GLOMERULAR FILTRATION RATE > 60.0 (>56); GLUCOSE, FASTING 97 MG/DL (60-100); POTASSIUM SERUM 4.4 MMOL/L (3.5-5.1); SODIUM LEVEL 137 MMOL/L (136-145); TOTAL PROTEIN 6.1 G/DL (5.7-8.2)
[2023-01-19] MEDS: TIOTROPIUM INHALER/CAPSULE (SPIRIVA) INH SCH (07:36)
[2023-01-19] MEDS: SYMBICORT 160/4.5MCG INHALER 6GM INH SCH ×2 (07:36→19:58)
[2023-01-19 08:07] LABS: VENOUS BASE EXCESS 8.6 (-2.0-2.0); VENOUS HCO3 35.7 MMOL/L (23.0-27.0); VENOUS O2 SATURATION 99.1 % (60.0-80.0); VENOUS PARTIAL PRESSURE O2 155.7 mmHg (30.0-50.0); VENOUS PH 7.392 UNITS (7.330-7.430); VENOUS STANDARD HCO3 32.5 MMOL/L; VENOUS TOTAL CO2 37.5 MMOL/L (24.0-28.0)
[2023-01-19] MEDS: AZITHROMYCIN 250MG TABLET PO SCH (09:27)
[2023-01-19] MEDS: METOPROLOL TART 12.5 MG PER 1/2 TAB PO SCH ×2 (09:27→21:00)
[2023-01-19] MEDS: ENOXAPARIN 40MG/0.4ML SYRINGE (J1650 PER 10MG) SC SCH (09:27)
[2023-01-19] MEDS: dexAMETHasone 4 MG TAB PO SCH (09:29)
[2023-01-19] MEDS ORDERED: REMDESIVIR 100 MG in NS 250 ML IV SCH (16:00)
[2023-01-19] MEDS ORDERED: LEVALBUTEROL HFA 45MCG/ACT 15GM INHALER INH PRN (16:40)
[2023-01-20 06:00] VITALS: BP 107/74; TEMP 98.1; O2SAT 93
[2023-01-20 06:17] LABS: ABG BASE EXCESS 7.2 (-2.0-2.0); ABG HCO3 33.4 MMOL/L (22.0-26.0); ABG PARTIAL PRESSURE CO2 53.7 mmHg (35.0-45.0); ABG PARTIAL PRESSURE O2 105.5 mmHg (75.0-100.0); ABG pH (ARTERIAL) 7.411 UNITS (7.350-7.450)
[2023-01-20 06:31] LABS: BASO % 0.2 % (0.0-1.0); EOS % 0.1 % (0.0-3.0); HEMATOCRIT 38.1 % (42.0-52.0); HEMOGLOBIN 12.5 g/dl (13.5-17.5); LYMPH # 1.8 10^3/uL (1.5-5.0); LYMPH % 12.3 % (24.0-44.0); MEAN CORPUSCULAR HEMOGLOBIN 30.6 pg (27.0-33.0); MEAN CORPUSCULAR HGB CONC 32.8 g/dl (32.0-36.5); MEAN CORPUSCULAR VOLUME 93.4 fl (80.0-96.0); MONO # 0.9 10^3/uL (0.0-0.8); MONO % 6.5 % (2.0-8.0); NEUTROPHILS # 11.4 10^3/uL (1.5-8.5); NEUTROPHILS % 79.9 % (36.0-66.0); PLATELET COUNT, AUTOMATED 250 10^3/uL (150-450); RED BLOOD COUNT 4.08 10^6/uL (4.30-6.10); WHITE BLOOD COUNT 14.2 10^3/uL (4.0-10.0)
[2023-01-20 07:00] LABS: ALBUMIN 3.4 G/DL (3.2-5.2); ALKALINE PHOSPHATASE 74 U/L (46-116); ALT/SGPT 35 U/L (7.0-40); AST/SGOT 26 U/L (<34); BILIRUBIN,TOTAL 0.3 MG/DL (0.3-1.2); BLOOD UREA NITROGEN 17 MG/DL (9-23); CALCIUM LEVEL 8.7 MG/DL (8.5-10.1); CARBON DIOXIDE LEVEL 34 MMOL/L (20-31); CHLORIDE LEVEL 100 MMOL/L (98-107); CREATININE FOR GFR 0.59 MG/DL (0.70-1.30); GLOMERULAR FILTRATION RATE > 60.0 (>56); GLUCOSE, FASTING 139 MG/DL (60-100); SODIUM LEVEL 139 MMOL/L (136-145); TOTAL PROTEIN 6.1 G/DL (5.7-8.2)
[2023-01-20] MEDS: TIOTROPIUM INHALER/CAPSULE (SPIRIVA) INH SCH (07:28)
[2023-01-20] MEDS: SYMBICORT 160/4.5MCG INHALER 6GM INH SCH (07:29)
[2023-01-20] MEDS: ENOXAPARIN 40MG/0.4ML SYRINGE (J1650 PER 10MG) SC SCH (09:36)
[2023-01-20 09:37] VITALS: BP 118/85
[2023-01-20] MEDS: dexAMETHasone 4 MG TAB PO SCH (09:37)
[2023-01-20] MEDS: METOPROLOL TART 12.5 MG PER 1/2 TAB PO SCH (09:37)
[2023-01-20] MEDS: AZITHROMYCIN 250MG TABLET PO SCH (09:37)
[2023-01-20] MEDS ORDERED: LEVAINH INH (10:49)
[2023-01-20] MEDS ORDERED: PRED10TA2 PO (10:49)
[2023-01-20] MEDS ORDERED: AZIT-12 PO (10:49)
[2023-01-20] MEDS ORDERED: PROA1AER2 INH (11:44)
[2023-01-21 08:35] LABS: PROCALCITONIN 0.06 NG/ML (0.0-0.08)
== END 2023-01-20 13:58 | disposition home or self-care (01) | DRG 137 ==
LOC: M ED 03:38 → EEVIPCON 05:06 → M ED INP 05:06 → ENRESERV 07:59 → M ICU 09:21 → M MSPAV 01-19 17:12
PROVIDERS: ADMIT Internal Medicine Pulmonary Disease; ATTEND Internal Medicine Pulmonary Disease
PROC: 3E0333Z Introduction of Anti-inflammatory into Peripheral Vein, Percutaneous Approach (ICD-10-PCS; principal; 2023-01-18)
PROC: XW033E5 Introduction of Remdesivir Anti-infective into Peripheral Vein, Percutaneous Approach, New Technology Group 5 (ICD-10-PCS; 2023-01-18)
DX: U07.1 COVID-19 (principal); J96.21 Acute and chronic respiratory failure with hypoxia; G93.41 Metabolic encephalopathy; J96.22 Acute and chronic respiratory failure with hypercapnia; E87.29 Other acidosis; Z99.81 Dependence on supplemental oxygen; E83.42 Hypomagnesemia; F17.210 Nicotine dependence, cigarettes, uncomplicated; R00.0 Tachycardia, unspecified; F32.9 Major depressive disorder, single episode, unspecified; F41.9 Anxiety disorder, unspecified; K44.9 Diaphragmatic hernia without obstruction or gangrene; J44.1 Chronic obstructive pulmonary disease with (acute) exacerbation; Z90.49 Acquired absence of other specified parts of digestive tract; Z79.899 Other long term (current) drug therapy; Z91.51 Personal history of suicidal behavior

== ENCOUNTER 2023-05-08 19:11 | Emergency (ER) | payer MEDICAID, OTHER ==
[~2023-05-08] VITALS: Ht 175.3 cm; Wt 73.4 kg
[~2023-05-08 19:11] MED LIST changes: +ALBU8.5H INH; +CEFD1CAP9 PO; -CEFD300C42 PO; +FLUT12HF2 PO; +FLUT12HF3 INH; +IPRA0.00 INH; +KETO2CR TOP; +TRIA2LOT TOP
[2023-05-08 21:50] LABS: HEMATOCRIT 40.2 % (42.0-52.0); MEAN CORPUSCULAR HGB CONC 32.3 g/dl (32.0-36.5); MEAN CORPUSCULAR VOLUME 95.7 fl (80.0-96.0); PLATELET COUNT, AUTOMATED 314 10^3/uL (150-450); WHITE BLOOD COUNT 15.4 10^3/uL (4.0-10.0)
[2023-05-08 22:02] LABS: ETHYL ALCOHOL (ETHANOL) 0.009 % (0.000-0.010)
[2023-05-08 22:04] LABS: ALBUMIN 3.6 G/DL (3.2-5.2); ALKALINE PHOSPHATASE 69 U/L (46-116); ALT/SGPT 19 U/L (7.0-40); AST/SGOT 21 U/L (<34); BILIRUBIN,DIRECT 0.1 MG/DL (<0.4); BILIRUBIN,TOTAL 0.4 MG/DL (0.3-1.2); BLOOD UREA NITROGEN 10 MG/DL (9-23); CARBON DIOXIDE LEVEL 40 MMOL/L (20-31); CHLORIDE LEVEL 100 MMOL/L (98-107); CREATININE FOR GFR 0.67 MG/DL (0.70-1.30); GLOMERULAR FILTRATION RATE > 60.0 (>56); GLUCOSE, FASTING 110 MG/DL (60-100); POTASSIUM SERUM 4.2 MMOL/L (3.5-5.1); SALICYLATE LEVEL < 3.0 MG/DL (<30); SODIUM LEVEL 140 MMOL/L (136-145); TOTAL PROTEIN 6.4 G/DL (5.7-8.2)
[2023-05-08 22:06] LABS: THYROID STIMULATING HORMONE 0.354 uIU/ML (0.55-4.78)
[2023-05-08 22:14] LABS: BARBITURATES URINE NEGATIVE (NEGATIVE); BENZODIAZEPINES URINE NEGATIVE (NEGATIVE); CANNABINOIDS URINE NEGATIVE (NEGATIVE); COCAINE METABOLITE URINE NEGATIVE (NEGATIVE); METHADONE URINE NEGATIVE (NEGATIVE); OPIATES URINE NEGATIVE (NEGATIVE); PHENCYCLIDINE URINE NEGATIVE (NEGATIVE)
[2023-05-08 22:17] LABS: AMPHETAMINES LEVEL URINE POSITIVE (NEGATIVE)
[2023-05-09 00:04] VITALS: BP 148/78; TEMP 98; O2SAT 98
== END 2023-05-09 00:14 | disposition home or self-care (01) ==
LOC: M ED 19:11
DX: F19.10 Other psychoactive substance abuse, uncomplicated (principal); F20.9 Schizophrenia, unspecified; G43.909 Migraine, unspecified, not intractable, without status migrainosus; Z87.891 Personal history of nicotine dependence; F12.10 Cannabis abuse, uncomplicated; Z79.52 Long term (current) use of systemic steroids; Z79.899 Other long term (current) drug therapy; Z79.2 Long term (current) use of antibiotics

== ENCOUNTER → 2023-05-25 | Outpatient (REF) | payer OTHER ==
[2023-05-25 18:32] LABS: BASO # 0.1 10^3/uL (0.0-0.2); BASO % 0.8 % (0.0-1.0); EOS # 0.3 10^3/uL (0.0-0.5); EOS % 2.3 % (0.0-3.0); HEMATOCRIT 44.2 % (42.0-52.0); HEMOGLOBIN 13.8 g/dl (13.5-17.5); LYMPH # 2.5 10^3/uL (1.5-5.0); LYMPH % 22.7 % (24.0-44.0); MEAN CORPUSCULAR HEMOGLOBIN 30.9 pg (27.0-33.0); MEAN CORPUSCULAR HGB CONC 31.2 g/dl (32.0-36.5); MEAN CORPUSCULAR VOLUME 98.9 fl (80.0-96.0); MONO # 1.1 10^3/uL (0.0-0.8); MONO % 9.9 % (2.0-8.0); NEUTROPHILS # 7.1 10^3/uL (1.5-8.5); NEUTROPHILS % 63.7 % (36.0-66.0); PLATELET COUNT, AUTOMATED 341 10^3/uL (150-450); RED BLOOD COUNT 4.47 10^6/uL (4.30-6.10); WHITE BLOOD COUNT 11.1 10^3/uL (4.0-10.0)
== END ==
LOC: M LABDRAWP 17:22
PROVIDERS: ATTEND Student in an Organized Health Care Education/Training Program
DX: T17.1XXD Foreign body in nostril, subsequent encounter (principal); D72.829 Elevated white blood cell count, unspecified

== ENCOUNTER 2023-09-17 15:00 | Inpatient (IN) | payer OTHER ==
[~2023-09-17] VITALS: Ht 175.3 cm; Wt 73.0 kg
[~2023-09-17 15:00] MED LIST changes: +ONDA-282 PO; -ONDA4TAB6 PO
[2023-09-17] MEDS: IPRATROPIUM 0.5MG/ALBUTEROL 2.5MG INH SOL UD 3ML (DUONEB) NEB ONE (15:59)
[2023-09-17] MEDS: ACETAMINOPHEN TAB 650MG DOSE (2X325MG) PO ONE (16:00)
[2023-09-17 16:22] LABS: ABG BASE EXCESS 6.8 (-2.0-2.0); ABG HCO3 37.2 MMOL/L (22.0-26.0); ABG O2 SATURATION 94.9 % (95.0-99.0); ABG PARTIAL PRESSURE O2 75.8 mmHg (75.0-100.0); ABG STANDARD HCO3 30.5 MMOL/L. (22.0-26.0); ABG TOTAL CO2 39.7 MMOL/L (22.0-29.0); ABG pH (ARTERIAL) 7.278 UNITS (7.350-7.450)
[2023-09-17 16:23] LABS: ABG PARTIAL PRESSURE CO2 81.3 mmHg (35.0-45.0)
[2023-09-17 16:32] LABS: BASO # 0.1 10^3/uL (0.0-0.2); BASO % 0.6 % (0.0-1.0); EOS # 0.1 10^3/uL (0.0-0.5); EOS % 1.3 % (0.0-3.0); HEMATOCRIT 44.9 % (42.0-52.0); HEMOGLOBIN 14.9 g/dl (13.5-17.5); LYMPH # 1.2 10^3/uL (1.5-5.0); LYMPH % 11.4 % (24.0-44.0); MEAN CORPUSCULAR HEMOGLOBIN 30.8 pg (27.0-33.0); MEAN CORPUSCULAR HGB CONC 33.2 g/dl (32.0-36.5); MEAN CORPUSCULAR VOLUME 92.8 fl (80.0-96.0); MONO # 0.5 10^3/uL (0.0-0.8); NEUTROPHILS # 8.5 10^3/uL (1.5-8.5); NEUTROPHILS % 81.3 % (36.0-66.0); PLATELET COUNT, AUTOMATED 298 10^3/uL (150-450); RED BLOOD COUNT 4.84 10^6/uL (4.30-6.10); WHITE BLOOD COUNT 10.4 10^3/uL (4.0-10.0)
[2023-09-17 16:41] LABS: ALBUMIN 3.9 G/DL (3.2-5.2); ALKALINE PHOSPHATASE 90 U/L (46-116); ALT/SGPT 17 U/L (7.0-40); AST/SGOT 29 U/L (<34); BILIRUBIN,DIRECT 0.1 MG/DL (<0.4); BILIRUBIN,TOTAL 0.5 MG/DL (0.3-1.2); BLOOD UREA NITROGEN 15 MG/DL (9-23); CALCIUM LEVEL 9.5 MG/DL (8.5-10.1); CARBON DIOXIDE LEVEL 39 MMOL/L (20-31); CHLORIDE LEVEL 97 MMOL/L (98-107); CK-MB VALUE MASS 1.6 NG/ML (<3.6); GLOMERULAR FILTRATION RATE > 60.0 (>56); GLUCOSE, FASTING 139 MG/DL (60-100); POTASSIUM SERUM 5.1 MMOL/L (3.5-5.1); SODIUM LEVEL 136 MMOL/L (136-145)
[2023-09-17 16:42] LABS: CPK CREATINE PHOSPHOKINASE 70 U/L (46-171); MB/CK RELATIVE INDEX 2.28 (< OR =4); THYROID STIMULATING HORMONE 0.328 uIU/ML (0.55-4.78)
[2023-09-17] MEDS: methylPREDNISolone 125MG 2ML VIAL IV ONE (16:48)
[2023-09-17 17:29] LABS: CK-MB VALUE MASS 1.6 NG/ML (<3.6)
[2023-09-17 17:32] LABS: CPK CREATINE PHOSPHOKINASE 62 U/L (46-171); MB/CK RELATIVE INDEX 2.58 (< OR =4)
[2023-09-17] MEDS ORDERED: ISOVUE-370 76% 100ML VIAL As Ordered ONE (17:42)
[2023-09-17 19:50] LABS: ABG BASE EXCESS 4.1 (-2.0-2.0); ABG HCO3 31.6 MMOL/L (22.0-26.0); ABG O2 SATURATION 95.1 % (95.0-99.0); ABG PARTIAL PRESSURE CO2 58.5 mmHg (35.0-45.0); ABG PARTIAL PRESSURE O2 69.8 mmHg (75.0-100.0); ABG STANDARD HCO3 28.1 MMOL/L. (22.0-26.0); ABG TOTAL CO2 33.4 MMOL/L (22.0-29.0)
[2023-09-17] MEDS ORDERED: ACETAMINOPHEN TAB 650MG DOSE (2X325MG) PO PRN (19:55)
[2023-09-17] MEDS ORDERED: MOM 30ML SUSPENSION UDC PO PRN (19:55)
[2023-09-17] MEDS: DOXYCYCLINE HYCLATE 100MG TABLET PO SCH (20:21)
[2023-09-17] MEDS ORDERED: LEVAINH INH (20:28)
[2023-09-17] MEDS ORDERED: IPRA0.00 INH (20:28)
[2023-09-17] MEDS ORDERED: HOME MED LIST COMPLETE! XX SCH (20:35)
[2023-09-17] MEDS: IPRATROPIUM 0.5MG/ALBUTEROL 2.5MG INH SOL UD 3ML (DUONEB) NEB SCH (20:42)
[2023-09-17 21:20] VITALS: BP 122/86; TEMP 97; O2SAT 93
[2023-09-17 22:00] VITALS: O2SAT 91
[2023-09-17 23:00] VITALS: BP 127/84; O2SAT 95
[2023-09-18] VITALS (16 sets, daily range): BP systolic 96–170; BP diastolic 59–126; TEMP 97.2–98.8; O2SAT 91–96
[2023-09-18] MEDS: methylPREDNISolone 40MG 1ML VIAL IV SCH (04:45)
[2023-09-18 06:21] LABS: HEMATOCRIT 42.4 % (42.0-52.0); HEMOGLOBIN 14.5 g/dl (13.5-17.5); MEAN CORPUSCULAR HEMOGLOBIN 30.9 pg (27.0-33.0); MEAN CORPUSCULAR HGB CONC 34.2 g/dl (32.0-36.5); MEAN CORPUSCULAR VOLUME 90.4 fl (80.0-96.0); PLATELET COUNT, AUTOMATED 311 10^3/uL (150-450); RED BLOOD COUNT 4.69 10^6/uL (4.30-6.10); WHITE BLOOD COUNT 8.4 10^3/uL (4.0-10.0)
[2023-09-18 06:39] LABS: BLOOD UREA NITROGEN 16 MG/DL (9-23); CALCIUM LEVEL 9.6 MG/DL (8.5-10.1); CARBON DIOXIDE LEVEL 36 MMOL/L (20-31); CHLORIDE LEVEL 98 MMOL/L (98-107); CREATININE FOR GFR 0.55 MG/DL (0.70-1.30); GLOMERULAR FILTRATION RATE > 60.0 (>56); GLUCOSE, FASTING 145 MG/DL (60-100); POTASSIUM SERUM 4.6 MMOL/L (3.5-5.1); SODIUM LEVEL 137 MMOL/L (136-145)
[2023-09-18] MEDS: SYMBICORT 160/4.5MCG INHALER 6GM INH SCH (07:58)
[2023-09-18 09:01] LABS: MAGNESIUM LEVEL 1.9 MG/DL (1.8-2.4)
[2023-09-18] MEDS: PANTOPRAZOLE 40MG VIAL IV SCH (10:56)
[2023-09-18] MEDS: ENOXAPARIN 40MG/0.4ML SYRINGE (J1650 PER 10MG) SC SCH (10:56)
[2023-09-18 11:30] LABS: PHOSPHORUS LEVEL 3.1 MG/DL (2.5-4.9)
[2023-09-18] MEDS: FORMOTEROL FUMARATE 20 MCG/2 ML INHALATION SOLUTION (PERFOROMIST) INH SCH (13:42)
[2023-09-18] MEDS: GLYCOPYRROLATE INJ 0.2 MG/ML 2 ML VIAL NEB SCH (13:43)
[2023-09-18] MEDS: LEVALBUTEROL 1.25MG 0.5ML CONCENTRATE NEB INH SCH (19:50)
[2023-09-18] MEDS: BUDESONIDE 0.5 MG/2 ML INHALATION SUSPENSION NEB SCH (19:50)
[2023-09-18] MEDS: IPRATROPIUM 0.02% SOLN 0.5MG 2.5ML NEB INH SCH (19:50)
[2023-09-18] MEDS: LORazepam 0.5 MG TAB PO SCH (20:06)
[2023-09-19 04:00] VITALS: BP 130/93; TEMP 98.2; O2SAT 92
[2023-09-19 06:44] LABS: BASO % 0.2 % (0.0-1.0); HEMOGLOBIN 13.4 g/dl (13.5-17.5); LYMPH # 1.2 10^3/uL (1.5-5.0); LYMPH % 6.4 % (24.0-44.0); MEAN CORPUSCULAR HEMOGLOBIN 30.5 pg (27.0-33.0); MEAN CORPUSCULAR HGB CONC 32.7 g/dl (32.0-36.5); MEAN CORPUSCULAR VOLUME 93.2 fl (80.0-96.0); MONO # 1.8 10^3/uL (0.0-0.8); MONO % 9.7 % (2.0-8.0); NEUTROPHILS # 15.2 10^3/uL (1.5-8.5); PLATELET COUNT, AUTOMATED 308 10^3/uL (150-450); WHITE BLOOD COUNT 18.3 10^3/uL (4.0-10.0)
[2023-09-19 07:08] LABS: BLOOD UREA NITROGEN 18 MG/DL (9-23); CALCIUM LEVEL 9.2 MG/DL (8.5-10.1); CARBON DIOXIDE LEVEL 35 MMOL/L (20-31); CHLORIDE LEVEL 102 MMOL/L (98-107); CREATININE FOR GFR 0.58 MG/DL (0.70-1.30); GLOMERULAR FILTRATION RATE > 60.0 (>56); GLUCOSE, FASTING 96 MG/DL (60-100); POTASSIUM SERUM 4.2 MMOL/L (3.5-5.1); SODIUM LEVEL 142 MMOL/L (136-145)
[2023-09-19 07:26] LABS: ABG BASE EXCESS 5.5 (-2.0-2.0); ABG HCO3 32.7 MMOL/L (22.0-26.0); ABG O2 SATURATION 95.1 % (95.0-99.0); ABG PARTIAL PRESSURE CO2 59.1 mmHg (35.0-45.0); ABG PARTIAL PRESSURE O2 75.3 mmHg (75.0-100.0); ABG STANDARD HCO3 29.4 MMOL/L. (22.0-26.0); ABG TOTAL CO2 34.5 MMOL/L (22.0-29.0); ABG pH (ARTERIAL) 7.361 UNITS (7.350-7.450)
[2023-09-19] MEDS: PANTOPRAZOLE 40MG TAB (PROTONIX) PO SCH (08:49)
[2023-09-19 20:20] VITALS: BP 129/94; TEMP 99.1; O2SAT 94
[2023-09-20 03:20] VITALS: BP 137/92; TEMP 98.2; O2SAT 97
[2023-09-20 06:19] LABS: BASO % 0.1 % (0.0-1.0); HEMATOCRIT 39.5 % (42.0-52.0); HEMOGLOBIN 12.6 g/dl (13.5-17.5); LYMPH # 1.6 10^3/uL (1.5-5.0); LYMPH % 10.6 % (24.0-44.0); MEAN CORPUSCULAR HEMOGLOBIN 30.4 pg (27.0-33.0); MEAN CORPUSCULAR HGB CONC 31.9 g/dl (32.0-36.5); MEAN CORPUSCULAR VOLUME 95.2 fl (80.0-96.0); MONO # 1.5 10^3/uL (0.0-0.8); MONO % 10.3 % (2.0-8.0); NEUTROPHILS # 11.7 10^3/uL (1.5-8.5); NEUTROPHILS % 78.3 % (36.0-66.0); PLATELET COUNT, AUTOMATED 284 10^3/uL (150-450); RED BLOOD COUNT 4.15 10^6/uL (4.30-6.10); WHITE BLOOD COUNT 14.9 10^3/uL (4.0-10.0)
[2023-09-20 06:41] LABS: BLOOD UREA NITROGEN 14 MG/DL (9-23); CALCIUM LEVEL 8.8 MG/DL (8.5-10.1); CARBON DIOXIDE LEVEL 37 MMOL/L (20-31); CHLORIDE LEVEL 100 MMOL/L (98-107); GLOMERULAR FILTRATION RATE > 60.0 (>56); GLUCOSE, FASTING 121 MG/DL (60-100); POTASSIUM SERUM 4.1 MMOL/L (3.5-5.1); SODIUM LEVEL 138 MMOL/L (136-145)
[2023-09-20] MEDS ORDERED: DOXY100T PO (07:48)
[2023-09-20] MEDS ORDERED: LEVAINH INH (07:57)
[2023-09-20] MEDS ORDERED: LEVA1.25 INH (09:44)
[2023-09-20] MEDS ORDERED: BUDE0.5S6 NEB (09:44)
== END 2023-09-20 13:13 | disposition home or self-care (01) | DRG 140 ==
LOC: M ED 15:00 → EDBD 15:00 → M ED INP 19:52 → M ICU 21:41 → M MSPAV 09-18 14:51
PROVIDERS: ADMIT Internal Medicine Pulmonary Disease; ATTEND Internal Medicine Nephrology
DX: J44.1 Chronic obstructive pulmonary disease with (acute) exacerbation (principal); J96.21 Acute and chronic respiratory failure with hypoxia; Z99.81 Dependence on supplemental oxygen; J96.22 Acute and chronic respiratory failure with hypercapnia; E83.42 Hypomagnesemia; K44.9 Diaphragmatic hernia without obstruction or gangrene; F41.9 Anxiety disorder, unspecified; F17.210 Nicotine dependence, cigarettes, uncomplicated; F31.9 Bipolar disorder, unspecified; R00.1 Bradycardia, unspecified; F12.90 Cannabis use, unspecified, uncomplicated; F14.90 Cocaine use, unspecified, uncomplicated; Z79.899 Other long term (current) drug therapy

== ENCOUNTER 2023-09-22 18:17 | Inpatient (IN) | payer OTHER ==
[~2023-09-22] VITALS: Ht 175.3 cm; Wt 76.4 kg
[~2023-09-22 18:17] MED LIST changes: +BUDE0.5S6 NEB; +DOXY100T PO; +LEVA1.25 INH
[2023-09-22] MEDS: IPRATROPIUM 0.5MG/ALBUTEROL 2.5MG INH SOL UD 3ML (DUONEB) NEB ONE (18:30)
[2023-09-22 18:38] VITALS: TEMP 97.5
[2023-09-22 18:44] LABS: BASO # 0.1 10^3/uL (0.0-0.2); BASO % 0.7 % (0.0-1.0); EOS # 0.4 10^3/uL (0.0-0.5); EOS % 2.5 % (0.0-3.0); HEMOGLOBIN 13.6 g/dl (13.5-17.5); LYMPH # 4.3 10^3/uL (1.5-5.0); LYMPH % 27.5 % (24.0-44.0); MEAN CORPUSCULAR HEMOGLOBIN 30.6 pg (27.0-33.0); MEAN CORPUSCULAR HGB CONC 30.9 g/dl (32.0-36.5); MEAN CORPUSCULAR VOLUME 99.1 fl (80.0-96.0); MONO # 1.6 10^3/uL (0.0-0.8); MONO % 9.8 % (2.0-8.0); PLATELET COUNT, AUTOMATED 319 10^3/uL (150-450); RED BLOOD COUNT 4.44 10^6/uL (4.30-6.10); WHITE BLOOD COUNT 15.8 10^3/uL (4.0-10.0)
[2023-09-22 19:05] LABS: ABG BASE EXCESS 8.1 (-2.0-2.0); ABG HCO3 39.5 MMOL/L (22.0-26.0); ABG O2 SATURATION 94.7 % (95.0-99.0); ABG PARTIAL PRESSURE O2 79.2 mmHg (75.0-100.0); ABG STANDARD HCO3 31.9 MMOL/L. (22.0-26.0); ABG TOTAL CO2 42.4 MMOL/L (22.0-29.0)
[2023-09-22 19:11] LABS: THYROID STIMULATING HORMONE 1.158 uIU/ML (0.55-4.78); THYROXINE (T4) 5.5 UG/DL (4.5-10.9)
[2023-09-22 19:12] LABS: ABG PARTIAL PRESSURE CO2 95.6 mmHg (35.0-45.0); ABG pH (ARTERIAL) 7.234 UNITS (7.350-7.450)
[2023-09-22 19:13] LABS: ALBUMIN 3.6 G/DL (3.2-5.2); ALKALINE PHOSPHATASE 80 U/L (46-116); ALT/SGPT 22 U/L (7.0-40); AST/SGOT 17 U/L (<34); BILIRUBIN,DIRECT 0.1 MG/DL (<0.4); BILIRUBIN,TOTAL 0.4 MG/DL (0.3-1.2); BLOOD UREA NITROGEN 16 MG/DL (9-23); CALCIUM LEVEL 8.5 MG/DL (8.5-10.1); CARBON DIOXIDE LEVEL > 40.0 MMOL/L (20-31); CHLORIDE LEVEL 100 MMOL/L (98-107); CREATININE FOR GFR 0.54 MG/DL (0.70-1.30); GLOMERULAR FILTRATION RATE > 60.0 (>56); GLUCOSE, FASTING 249 MG/DL (60-100); POTASSIUM SERUM 4.4 MMOL/L (3.5-5.1); SODIUM LEVEL 139 MMOL/L (136-145); TOTAL PROTEIN 6.6 G/DL (5.7-8.2)
[2023-09-22 20:15] LABS: ABG BASE EXCESS 8.5 (-2.0-2.0); ABG HCO3 37.9 MMOL/L (22.0-26.0); ABG O2 SATURATION 95.2 % (95.0-99.0); ABG PARTIAL PRESSURE O2 76.6 mmHg (75.0-100.0); ABG STANDARD HCO3 32.3 MMOL/L. (22.0-26.0); ABG TOTAL CO2 40.4 MMOL/L (22.0-29.0); ABG pH (ARTERIAL) 7.301 UNITS (7.350-7.450)
[2023-09-22 20:16] LABS: ABG PARTIAL PRESSURE CO2 78.7 mmHg (35.0-45.0)
[2023-09-22] MEDS ORDERED: ACETAMINOPHEN TAB 650MG DOSE (2X325MG) PO PRN (21:40)
[2023-09-22 22:01] VITALS: O2SAT 96
[2023-09-22] MEDS ORDERED: PRED10TA2 PO (22:19)
[2023-09-22] MEDS ORDERED: BUDE0.5S6 INH (22:19)
[2023-09-22] MEDS ORDERED: DOXY100C3 PO (22:19)
[2023-09-22] MEDS ORDERED: LEVA1.2519 INH (22:19)
[2023-09-22] MEDS ORDERED: HOME MED LIST COMPLETE! XX SCH (22:20)
[2023-09-22] MEDS: methylPREDNISolone 40MG 1ML VIAL IV SCH (22:51)
[2023-09-22] MEDS: guaiFENesin ER TABLET 600 MG TAB PO SCH (22:51)
[2023-09-22] MEDS: ENOXAPARIN 40MG/0.4ML SYRINGE (J1650 PER 10MG) SC SCH (22:51)
[2023-09-22] MEDS: DOXYCYCLINE HYCLATE 100MG TABLET PO SCH (22:51)
[2023-09-23 02:54] LABS: AMPHETAMINES LEVEL URINE NEGATIVE (NEGATIVE); BARBITURATES URINE NEGATIVE (NEGATIVE); BENZODIAZEPINES URINE NEGATIVE (NEGATIVE); METHADONE URINE NEGATIVE (NEGATIVE); OPIATES URINE NEGATIVE (NEGATIVE); PHENCYCLIDINE URINE NEGATIVE (NEGATIVE)
[2023-09-23 02:58] LABS: CANNABINOIDS URINE POSITIVE (NEGATIVE); COCAINE METABOLITE URINE POSITIVE (NEGATIVE)
[2023-09-23 04:45] VITALS: BP 108/75; O2SAT 91
[2023-09-23] MEDS ORDERED: LEVALBUTEROL HFA 45MCG/ACT 15GM INHALER INH PRN (19:20)
[2023-09-23] MEDS ORDERED: KETOCONAZOLE 2% CREAM TOP PRN (19:20)
[2023-09-23] MEDS ORDERED: ADVAIR HFA 230/21MCG INHALER INH SCH (20:00)
[2023-09-23] MEDS ORDERED: BUDESONIDE 0.5 MG/2 ML INHALATION SUSPENSION INH SCH (20:00)
[2023-09-23] MEDS ORDERED: IPRATROPIUM 0.5MG/ALBUTEROL 2.5MG INH SOL UD 3ML (DUONEB) NEB SCH ×2 (20:00→22:00)
[2023-09-24] MEDS ORDERED: TIOTROPIUM INHALER/CAPSULE (SPIRIVA) INH SCH (08:00)
== END 2023-09-23 06:27 | disposition left against medical advice (07) | DRG 140 ==
LOC: M ED 18:17 → EDBD 18:17 → M ED INP 21:40
PROVIDERS: ADMIT Preventive Medicine Undersea and Hyperbaric Medicine; ATTEND Preventive Medicine Undersea and Hyperbaric Medicine
DX: J44.1 Chronic obstructive pulmonary disease with (acute) exacerbation (principal); J96.22 Acute and chronic respiratory failure with hypercapnia; Z91.119 Patient's noncompliance with dietary regimen due to unspecified reason; Z79.899 Other long term (current) drug therapy

== ENCOUNTER 2023-09-28 09:45 | Inpatient (IN) | payer OTHER ==
[~2023-09-28] VITALS: Ht 175.3 cm; Wt 75.6 kg
[~2023-09-28 09:45] MED LIST changes: +BUDE0.5S6 INH; +DOXY100C3 PO; +LEVA1.2519 INH
[2023-09-28] MEDS: IPRATROPIUM 0.5MG/ALBUTEROL 2.5MG INH SOL UD 3ML (DUONEB) NEB PRN (10:00)
[2023-09-28 10:17] LABS: ABG BASE EXCESS 7.5 (-2.0-2.0); ABG O2 SATURATION 89.7 % (95.0-99.0); ABG PARTIAL PRESSURE O2 55.3 mmHg (75.0-100.0); ABG STANDARD HCO3 31.1 MMOL/L. (22.0-26.0); ABG TOTAL CO2 39.4 MMOL/L (22.0-29.0); ABG pH (ARTERIAL) 7.296 UNITS (7.350-7.450)
[2023-09-28 10:22] LABS: ABG PARTIAL PRESSURE CO2 77.7 mmHg (35.0-45.0)
[2023-09-28 10:22] LABS: BASO # 0.1 10^3/uL (0.0-0.2); BASO % 0.4 % (0.0-1.0); EOS % 0.1 % (0.0-3.0); HEMATOCRIT 42.6 % (42.0-52.0); HEMOGLOBIN 13.3 g/dl (13.5-17.5); LYMPH # 0.9 10^3/uL (1.5-5.0); LYMPH % 4.7 % (24.0-44.0); MEAN CORPUSCULAR HEMOGLOBIN 30.6 pg (27.0-33.0); MEAN CORPUSCULAR HGB CONC 31.2 g/dl (32.0-36.5); MEAN CORPUSCULAR VOLUME 97.9 fl (80.0-96.0); MONO # 0.9 10^3/uL (0.0-0.8); MONO % 4.6 % (2.0-8.0); NEUTROPHILS # 17.5 10^3/uL (1.5-8.5); NEUTROPHILS % 88.4 % (36.0-66.0); PLATELET COUNT, AUTOMATED 356 10^3/uL (150-450); RED BLOOD COUNT 4.35 10^6/uL (4.30-6.10); WHITE BLOOD COUNT 19.8 10^3/uL (4.0-10.0)
[2023-09-28 10:33] LABS: INR 0.91
[2023-09-28 10:57] LABS: ALKALINE PHOSPHATASE 83 U/L (46-116); ALT/SGPT 27 U/L (7.0-40); AST/SGOT 13 U/L (<34); BILIRUBIN,DIRECT 0.1 MG/DL (<0.4); BILIRUBIN,TOTAL 0.5 MG/DL (0.3-1.2); BLOOD UREA NITROGEN 19 MG/DL (9-23); CARBON DIOXIDE LEVEL > 40.0 MMOL/L (20-31); CHLORIDE LEVEL 94 MMOL/L (98-107); CREATININE FOR GFR 0.57 MG/DL (0.70-1.30); GLOMERULAR FILTRATION RATE > 60.0 (>56); GLUCOSE, FASTING 163 MG/DL (60-100); POTASSIUM SERUM 4.3 MMOL/L (3.5-5.1); SODIUM LEVEL 137 MMOL/L (136-145); TOTAL PROTEIN 6.8 G/DL (5.7-8.2)
[2023-09-28 11:57] LABS: ABG BASE EXCESS 6.4 (-2.0-2.0); ABG HCO3 36.1 MMOL/L (22.0-26.0); ABG O2 SATURATION 98.9 % (95.0-99.0); ABG PARTIAL PRESSURE O2 163.7 mmHg (75.0-100.0); ABG STANDARD HCO3 30.3 MMOL/L. (22.0-26.0); ABG TOTAL CO2 38.5 MMOL/L (22.0-29.0); ABG pH (ARTERIAL) 7.279 UNITS (7.350-7.450)
[2023-09-28 11:59] LABS: ABG PARTIAL PRESSURE CO2 78.7 mmHg (35.0-45.0)
[2023-09-28 13:41] LABS: ABG HCO3 32.1 MMOL/L (22.0-26.0); ABG O2 SATURATION 98.2 % (95.0-99.0); ABG PARTIAL PRESSURE O2 105.1 mmHg (75.0-100.0); ABG STANDARD HCO3 28.1 MMOL/L. (22.0-26.0); ABG TOTAL CO2 34.1 MMOL/L (22.0-29.0); ABG pH (ARTERIAL) 7.312 UNITS (7.350-7.450)
[2023-09-28] MEDS: methylPREDNISolone 40MG 1ML VIAL IV SCH (15:04)
[2023-09-28] MEDS ORDERED: DOXY100T PO (15:07)
[2023-09-28] MEDS ORDERED: HOME MED LIST COMPLETE! XX SCH (15:10)
[2023-09-28 15:21] LABS: VENOUS BASE EXCESS 7.8 (-2.0-2.0); VENOUS HCO3 36.1 MMOL/L (23.0-27.0); VENOUS O2 SATURATION 91.2 % (60.0-80.0); VENOUS PARTIAL PRESSURE CO2 68.8 mmHg (38.0-50.0); VENOUS PARTIAL PRESSURE O2 57.1 mmHg (30.0-50.0); VENOUS PH 7.338 UNITS (7.330-7.430); VENOUS STANDARD HCO3 31.5 MMOL/L; VENOUS TOTAL CO2 38.2 MMOL/L (24.0-28.0)
[2023-09-28 16:21] VITALS: BP 116/79; TEMP 98.2; O2SAT 98
[2023-09-28] MEDS: IPRATROPIUM 0.5MG/ALBUTEROL 2.5MG INH SOL UD 3ML (DUONEB) NEB SCH (16:23)
[2023-09-28] MEDS: FORMOTEROL FUMARATE 20 MCG/2 ML INHALATION SOLUTION (PERFOROMIST) INH SCH (19:23)
[2023-09-28] MEDS: GLYCOPYRROLATE INJ 0.2 MG/ML 2 ML VIAL NEB SCH (19:24)
[2023-09-28 20:14] VITALS: BP 112/58; TEMP 98.9; O2SAT 93
[2023-09-28] MEDS: guaiFENesin ER TABLET 600 MG TAB PO SCH (20:25)
[2023-09-29] VITALS: BP 119/64; TEMP 98.4; O2SAT 93
[2023-09-29 04:20] VITALS: BP 114/79; TEMP 98.1; O2SAT 96
[2023-09-29 04:40] LABS: BASO % 0.1 % (0.0-1.0); HEMATOCRIT 36.2 % (42.0-52.0); HEMOGLOBIN 11.9 g/dl (13.5-17.5); LYMPH # 1.5 10^3/uL (1.5-5.0); LYMPH % 9.7 % (24.0-44.0); MEAN CORPUSCULAR HEMOGLOBIN 31.1 pg (27.0-33.0); MEAN CORPUSCULAR HGB CONC 32.9 g/dl (32.0-36.5); MEAN CORPUSCULAR VOLUME 94.5 fl (80.0-96.0); MONO # 1.4 10^3/uL (0.0-0.8); MONO % 9.1 % (2.0-8.0); NEUTROPHILS # 12.1 10^3/uL (1.5-8.5); NEUTROPHILS % 79.8 % (36.0-66.0); PLATELET COUNT, AUTOMATED 307 10^3/uL (150-450); RED BLOOD COUNT 3.83 10^6/uL (4.30-6.10); WHITE BLOOD COUNT 15.2 10^3/uL (4.0-10.0)
[2023-09-29 05:05] LABS: ALBUMIN 3.1 G/DL (3.2-5.2); ALKALINE PHOSPHATASE 70 U/L (46-116); ALT/SGPT 24 U/L (7.0-40); AST/SGOT 11 U/L (<34); BILIRUBIN,TOTAL 0.3 MG/DL (0.3-1.2); BLOOD UREA NITROGEN 20 MG/DL (9-23); CALCIUM LEVEL 8.7 MG/DL (8.5-10.1); CARBON DIOXIDE LEVEL 39 MMOL/L (20-31); CHLORIDE LEVEL 99 MMOL/L (98-107); CREATININE FOR GFR 0.51 MG/DL (0.70-1.30); GLOMERULAR FILTRATION RATE > 60.0 (>56); GLUCOSE, FASTING 118 MG/DL (60-100); POTASSIUM SERUM 3.6 MMOL/L (3.5-5.1); SODIUM LEVEL 138 MMOL/L (136-145); TOTAL PROTEIN 5.7 G/DL (5.7-8.2)
[2023-09-29 07:52] VITALS: BP 117/80; TEMP 98.4; O2SAT 97
[2023-09-29] MEDS: IPRATROPIUM 0.02% SOLN 0.5MG 2.5ML NEB INH SCH (07:52)
[2023-09-29] MEDS: LEVALBUTEROL 1.25MG 0.5ML CONCENTRATE NEB INH SCH (07:52)
[2023-09-29] MEDS: ENOXAPARIN 40MG/0.4ML SYRINGE (J1650 PER 10MG) SC SCH (08:57)
[2023-09-29 09:15] VITALS: O2SAT 87
[2023-09-29 10:00] VITALS: O2SAT 93
[2023-09-29 11:00] VITALS: O2SAT 93
[2023-09-29] MEDS ORDERED: PRED10TA2 PO (11:50)
== END 2023-09-29 14:45 | disposition home or self-care (01) | DRG 140 ==
LOC: EDBD 09:45 → M ED 09:45 → M ED INP 14:31 → M ICU 16:14
PROVIDERS: ADMIT Internal Medicine Pulmonary Disease; ATTEND Internal Medicine
DX: J44.1 Chronic obstructive pulmonary disease with (acute) exacerbation (principal); J96.21 Acute and chronic respiratory failure with hypoxia; J96.22 Acute and chronic respiratory failure with hypercapnia; Z11.52 Encounter for screening for COVID-19; Z99.81 Dependence on supplemental oxygen; F20.9 Schizophrenia, unspecified; Z87.891 Personal history of nicotine dependence; Z90.49 Acquired absence of other specified parts of digestive tract; Z79.52 Long term (current) use of systemic steroids; Z79.899 Other long term (current) drug therapy

== ENCOUNTER 2024-10-10 08:30 | Day surgery (SDC) | payer OTHER ==
[~2024-10-10] VITALS: Ht 175.3 cm; Wt 82.4 kg
[~2024-10-10 08:30] MED LIST changes: +ADVA230A INH; +AMLO1TAB24 PO; +IRBE150T27 PO; -LEVA1.2519 INH; +LEVA1.2526 INH; +LEVA15HF2 INH; -LEVAINH INH; +LIDOCAINE 2% 100 MG/5 ML SDV (FOR ANES.) As Ordered ONE
[2024-10-10 10:11] VITALS: TEMP 98.2
[2024-10-10 10:27] VITALS: BP 107/56; O2SAT 98
== END 2024-10-10 11:24 | disposition home or self-care (01) ==
LOC: M OPP 08:30
PROVIDERS: ATTEND Surgery
DX: D12.6 Benign neoplasm of colon, unspecified (principal); Z86.0100 Personal history of colon polyps, unspecified; Z79.899 Other long term (current) drug therapy; J44.9 Chronic obstructive pulmonary disease, unspecified; Z99.81 Dependence on supplemental oxygen; Z87.891 Personal history of nicotine dependence

== ENCOUNTER → 2024-10-13 | Outpatient (CLI) | payer OTHER ==
[~2024-10-13] MED LIST changes: -LIDOCAINE 2% 100 MG/5 ML SDV (FOR ANES.) As Ordered ONE
== END ==
LOC: M RAD 09:07
PROVIDERS: ATTEND Student in an Organized Health Care Education/Training Program
DX: Z12.2 Encounter for screening for malignant neoplasm of respiratory organs (principal); F17.210 Nicotine dependence, cigarettes, uncomplicated; J43.9 Emphysema, unspecified; R91.8 Other nonspecific abnormal finding of lung field; I25.10 Atherosclerotic heart disease of native coronary artery without angina pectoris; Z90.49 Acquired absence of other specified parts of digestive tract

== ENCOUNTER → 2024-10-30 | Outpatient (CLI) | payer OTHER | LOC: M PLARAD 15:14 | PROVIDERS: ATTEND Student in an Organized Health Care Education/Training Program | DX: R91.1 Solitary pulmonary nodule (principal) | CPT/HCPCS: 78815; A9552 ==

== ENCOUNTER 2025-02-19 23:21 | Emergency (ER) | payer OTHER ==
[~2025-02-19] VITALS: Ht 170.2 cm; Wt 87.5 kg
[~2025-02-19 23:21] MED LIST changes: -IBUP-1022 PO; +IBUP600T42 PO
[2025-02-19] MEDS: LEVALBUTEROL 1.25 MG 0.5ML CONCENTRATE NEB NEB ONE (23:38)
[2025-02-19 23:41] VITALS: TEMP 96.1
[2025-02-19 23:53] LABS: VENOUS BASE EXCESS 0.4 (-2.0-2.0); VENOUS HCO3 27.3 MMOL/L (23.0-27.0); VENOUS O2 SATURATION 99.3 % (60.0-80.0); VENOUS PARTIAL PRESSURE CO2 52.9 mmHg (38.0-50.0); VENOUS PARTIAL PRESSURE O2 196.9 mmHg (30.0-50.0); VENOUS PH 7.330 UNITS (7.330-7.430); VENOUS STANDARD HCO3 24.9 MMOL/L; VENOUS TOTAL CO2 28.9 MMOL/L (24.0-28.0)
[2025-02-20 00:21] LABS: BASO # 0.1 10^3/uL (0.0-0.2); BASO % 1.0 % (0.0-1.0); EOS # 0.2 10^3/uL (0.0-0.5); EOS % 1.4 % (0.0-3.0); LYMPH # 2.4 10^3/uL (1.5-5.0); LYMPH % 22.7 % (24.0-44.0); MONO # 0.9 10^3/uL (0.0-0.8); MONO % 8.8 % (2.0-8.0); NEUTROPHILS # 7.0 10^3/uL (1.5-8.5); NEUTROPHILS % 65.1 % (36.0-66.0); PLATELET COUNT, AUTOMATED 361 10^3/uL (150-450)
[2025-02-20 00:23] LABS: ALT/SGPT 41 U/L (7.0-40); AST/SGOT 28 U/L (<34); CALCIUM LEVEL 8.4 MG/DL (8.5-10.1); CARBON DIOXIDE LEVEL 29 MMOL/L (20-31); CHLORIDE LEVEL 101 MMOL/L (98-107); CK-MB VALUE MASS 6.4 NG/ML (<3.6); CPK CREATINE PHOSPHOKINASE 155 U/L (46-171); CREATININE FOR GFR 0.79 MG/DL (0.70-1.30); GLOMERULAR FILTRATION RATE > 90.0 (>56); MB/CK RELATIVE INDEX 4.12 (< OR =4); POTASSIUM SERUM 4.0 MMOL/L (3.5-5.1); SODIUM LEVEL 137 MMOL/L (136-145)
[2025-02-20] MEDS: LEVALBUTEROL 1.25 MG 0.5ML CONCENTRATE NEB NEB PRN (01:18)
[2025-02-20] MEDS: IPRATROPIUM 0.5 MG/2.5 ML (0.02%) SOLN NEB NEB ONE (01:18)
[2025-02-20 01:38] LABS: CK-MB VALUE MASS 6.8 NG/ML (<3.6)
[2025-02-20 01:40] LABS: CPK CREATINE PHOSPHOKINASE 152 U/L (46-171); MB/CK RELATIVE INDEX 4.47 (< OR =4)
[2025-02-20] MEDS ORDERED: PRED20TA PO (03:22)
[2025-02-20 03:45] VITALS: BP 114/61; O2SAT 97
== END 2025-02-20 04:00 | disposition home or self-care (01) ==
LOC: M ED 23:21
DX: J44.1 Chronic obstructive pulmonary disease with (acute) exacerbation (principal); I10 Essential (primary) hypertension; G43.909 Migraine, unspecified, not intractable, without status migrainosus; F20.9 Schizophrenia, unspecified; J45.909 Unspecified asthma, uncomplicated; K21.9 Gastro-esophageal reflux disease without esophagitis; Z79.899 Other long term (current) drug therapy; Z79.52 Long term (current) use of systemic steroids